=== PATIENT | female | born 1950 | race Caucasian/White ===

== ENCOUNTER → 2021-04-12 15:56 | Outpatient (CLI) | payer MEDICARE, SELFPAY ==
--- NOTE | ~2021-04-12 | XR_ITS ---
XR cervical spine 4-5V 04/12/2021 16:38 Indication: Neck pain Procedure: 7 views cervical spine Comparison: No prior studies for comparison. Findings: There is degenerative anterolisthesis at C4-5. There is degenerative disc disease at C5-6 a nd C6-7 with marginal osteophytes. No prevertebral soft tissue swelling. There is advanced multilevel facet hypertrophy. Lung bases are unremarkable. No fracture or traumatic malalignment. Impression: 1: Moderate cervical spondylosis. Reviewed, dictated and finalized at location A. 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
== END ==
PROVIDERS: PCP Physician Assistant; Visit Provider Physician Assistant
DX: M47.892 Other spondylosis, cervical region (principal)
CPT/HCPCS: 72050

== ENCOUNTER → 2021-06-12 11:33 | Outpatient (CLI) | payer MEDICARE, SELFPAY ==
--- NOTE | ~2021-06-12 | XR_ITS ---
XR lumbar spine 2-3V DATE: 06/12/2021 11:51 INDICATION: Back pain following a fall TECHNIQUE: AP, lateral, coned lateral lumbosacral views COMPARISON: 08/16/2003 lumbar spine FINDINGS: There is minimal dextroscoliosis of the lower thoracic and lumbar spine. There is diffuse osteopenia. There is mild anterior wedge compression fracture deformity of L1, new since 08/16/2003, possibly rece nt. There is degenerative disc disease throughout the lumbar spine, mild at L1-2, moderate at L2-3, moder ately severe at L3-4 and severe at L4-5 and L5-S1. There is degenerative change at the apophyseal joints with associated grade 1 anterolisthesis at L3-4 . The sacroiliac joints are intact. IMPRESSION: Mild anterior wedge compression fracture deformity of L1, possibly recent Diffuse osteopenia Mild scoliosis Multilevel degenerative disc disease, most prominent at L4-5 and L5-S1 Degenerative change at the apophyseal joints with associated grade 1 anterolisthesis at L3-4 Reviewed, dictated and finalized at location B. ET DEVELOPER IMPRESSION: Mild anterior wedge compression fracture deformity of L1, possibly recent Diffuse osteopenia Mild scoliosis Multilevel degenerative disc disease, most prominent at L4-5 and L5-S1 Degenerative change at the apophyseal joints with associated grade 1 anterolist hesis at L3-4
== END ==
PROVIDERS: PCP Physician Assistant; Visit Provider Physician Assistant
DX: M85.88 Other specified disorders of bone density and structure, other site (principal); M51.36 Other intervertebral disc degeneration, lumbar region; M41.9 Scoliosis, unspecified; S32.010A Wedge compression fracture of first lumbar vertebra, initial encounter for closed fracture; X58.XXXA Exposure to other specified factors, initial encounter
CPT/HCPCS: 72100

== ENCOUNTER 2021-11-06 14:27 | Outpatient (CLI) | payer MEDICARE, SELFPAY ==
--- NOTE | ~2021-11-06 | CT_ITS ---
EXAMINATION: CT abdomen pelvis wo/w con DATE: 11/06/2021 15:20 INDICATION: Urinary frequency. Hematuria. TECHNIQUE: Computed tomography (CT) of the abdomen and pelvis was performed without and with 130 cc O mnipaque 300 intravenous contrast. The dose-length product was 834.92 mGy-cm. Automated exposure cont rol and iterative reconstruction technique were employed. COMPARISON: None. FINDINGS: Dependent atelectasis. Otherwise, lung bases are unremarkable. The liver, spleen pancreas, adrenal glands are unremarkable. There are small subcentimeter hypodensities of the left kidney, most likely benign cysts. Ureters are normal in course and caliber. Bladder is unremarkable. Colonic dive rticulosis without evidence for diverticulitis. There is atherosclerosis of the aorta without aneurys m. Bladder is unremarkable. Nonobstructive bowel gas pattern. No lymphadenopathy. There is a chronic superior endplate compression fracture of L1 there is severe IMPRESSION: 1. No findings to account for patient's symptoms. Reviewed, dictated and finalized at location A.
--- NOTE | ~2021-11-06 | XR_ITS ---
XR abdomen/kub 1V 11/06/2021 14:46 INDICATION: Microscopic hematuria TECHNIQUE: KUB COMPARISON: None FINDINGS: Bowel gas pattern is normal. There is no evidence of free air, mass, organomegaly, ascites or obstruction. No abnormal calculi are seen. The bones appear intact. Moderate lumbar spondylosis . IMPRESSION: 1: No acute abdominal abnormality identified. Reviewed, dictated and finalized at location A.
[2021-11-06 15:00] LABS: Estimated Glomerular Filt Rate > 60
== END 2021-11-06 14:28 | disposition home or self-care (01) ==
PROVIDERS: PCP Physician Assistant; Visit Provider Nurse Practitioner Family
DX: R31.29 Other microscopic hematuria (principal)
CPT/HCPCS: 74018; 74178; Q9967

== ENCOUNTER → 2022-09-16 14:13 | Outpatient (CLI) | payer OTHER, SELFPAY ==
--- NOTE | ~2022-09-16 | XR_ITS ---
XR knee RT min 4V 09/16/2022 14:55 Indication: Right knee pain Procedure: 4 views right knee Comparison: No prior studies for comparison. Findings: There is moderate tricompartment osteoarthritis of the right knee. No fracture or traumatic malalignment. Small loose bodies presents. To the patellofemoral joint. Normal mineralization. No si gnificant joint effusion. No foreign bodies. Impression: 1: Moderate tricompartment osteoarthritis of the right knee. Reviewed, dictated and finalized at location B. Impression: 1: Moderate tricompartment osteoarthritis of the right knee.
== END ==
PROVIDERS: PCP Internal Medicine; Visit Provider Internal Medicine
DX: M17.11 Unilateral primary osteoarthritis, right knee (principal)
CPT/HCPCS: 73564

== ENCOUNTER 2022-10-04 12:27 | Outpatient (CLI) | payer MEDICARE, SELFPAY ==
--- NOTE | ~2022-10-04 | XR_ITS ---
XR lumbar spine min 4V DATE: 10/04/2022 12:57 INDICATION: Low back pain, right side, radiating to hip. Fall. TECHNIQUE: AP, lateral, coned lateral lumbosacral and bilateral oblique views COMPARISON: June 12, 2021 lumbar spine FINDINGS: There is osteopenia. There is chronic mild anterior wedge compression fracture deformity of L1, present on June 12. There is mild degenerative disc disease at L1-2 and L2-3, moderate to moderately severe degenerative disc disease at L3-4 and severe degenerative disc disease at L4-5 and L5-S1, with prominent posterior spurring at L4-5. There is degenerative change at the lumbar apophyseal joints with associated grade 1 anterolisthesis at L3-4. The sacroiliac joints are intact. Extensive calcification of the abdominal aorta, without evidence of aneurysm. IMPRESSION: Multilevel degenerative disc disease, most pronounced at L4-5 and L5-S1 Grade 1 anterolisthesis at L3-4 due to degenerative changes apophyseal joints Chronic L1 compression fracture Reviewed, dictated and finalized at location [] IMPRESSION: Multilevel degenerative disc disease, most pronounced at L4-5 and L 5-S1 Grade 1 anterolisthesis at L3-4 due to degenerative changes apophyseal joints Chronic L1 compression fracture
== END 2022-10-04 12:28 | disposition home or self-care (01) ==
PROVIDERS: PCP Internal Medicine; Visit Provider Internal Medicine
DX: M51.36 Other intervertebral disc degeneration, lumbar region (principal); M51.37 Other intervertebral disc degeneration, lumbosacral region
CPT/HCPCS: 72110

== ENCOUNTER 2023-01-02 10:54 | Outpatient (CLI) | payer MEDICARE, SELFPAY ==
--- NOTE | ~2023-01-02 | MR_ITS ---
MR breast BI wo/w con 01/10/2023 08:44 CDT INDICATION: Extremely dense breasts TECHNIQUE: MRI of the breasts perform using standard protocol pre-and post IV contrast with the follo wing sequences: Axial T2 STIR, axial T1, axial vibrant T1 with fat suppression precontrast and multip hasic postcontrast. 15 cc of MultiHance administered intravenously. COMPARISON: No prior studies for comparison. FINDINGS: There are no abnormalities on the precontrast sequences. There is mild background parenchym al enhancement. No enhancing lesions following contrast administration. The lower outer quadrant of the right breast, 4.5 cm from the nipple, anteriorly, there is a 7 x 5 x 5 mm heterogeneously enhanci ng mass with rapid washout. No evidence of signal abnormalities in the axillary or internal mammary n ode distributions. LEFT BREAST: No signal abnormalities on precontrast sequences. There is mild background parenchymal enhancement. No enhancing lesions following contrast administration. In the lower inner quadrant of the left breast, 6.5 cm from the nipple posteriorly there is a poorly marginated mass measuring 2.1 x 1.8 x 1.4 cm with rapid washout enhancement No evidence of signal abnormalities in the axillary or internal mammary node distributions.] IMPRESSION: 1: Bilateral breast masses described above. Correlation with diagnostic bilateral mammogram and ultra sound recommended. BI-RADS CATEGORY 0 - INCOMPLETE STUDY, NEED ADDITIONAL IMAGING EVALUATION. Reviewed, dictated and finalized at location B. IMPRESSION: 1: Bilateral breast masses described above. Correlation with diagnostic bilater al mammogram and ultrasound recommended. BI-RADS CATEGORY 0 - INCOMPLETE STUDY, NEED ADDITIONAL IMAGING EVALUATION.
== END 2023-01-02 10:55 | disposition home or self-care (01) ==
PROVIDERS: PCP Internal Medicine; Visit Provider Obstetrics & Gynecology Gynecology
DX: N63.13 Unspecified lump in the right breast, lower outer quadrant (principal); N63.24 Unspecified lump in the left breast, lower inner quadrant
CPT/HCPCS: 77049; A9577; C8908

== ENCOUNTER 2023-02-03 12:45 | Outpatient (CLI) | payer MEDICARE, SELFPAY ==
--- NOTE | ~2023-02-03 | MMUS_ITS ---
EXAMINATION: MM diagnostic yin BI w liss, US breast BI complete HISTORY: Right lower outer quadrant 7 x 5 x 5 mm mass reported 4.5 cm from nipple and left lower inne r quadrant 2.1 x 1.8 x 1.4 cm irregular mass reported 6.5 cm from the nipple on 01/02/2023 MR breast ex amination TECHNIQUE: Bilateral ML, MLO and CC and left spot MLO 3-D tomosynthesis images were performed and syn thetic 2-D images were generated. CAD analysis was submitted and interpreted. High resolution bilater al complete breast ultrasound examination including all 4 quadrants and subareolar areas was performe d. COMPARISON: 01/02/2023 MR breast examination 03/25/2022 bilateral screening mammogram performed at [address] [place] [address] BREAST PARENCHYMAL COMPOSITION: The breasts are extremely dense, which lowers the sensitivity of mamm ography. FINDINGS: MAMMOGRAPHIC FINDINGS: There are bilateral scattered benign calcifications. No reproducible suspicious [facility]. ULTRASOUND: Left breast 7:00 3 cm from nipple: 3.2 x 3.6 mm sonolucency is no through transmission, no posterior shadowing, no internal vascularity, likely a benign cyst. No suspicious mass or shadowing of either breast is detected. IMPRESSION: 1. No mammographic or sonographic evidence of malignancy 2. Routine annual mammographic screening is recommended BI-RADS Category 2: Benign finding(s). Reviewed, dictated and finalized at location A. IMPRESSION: 1. No mammographic or sonographic evidence of malignancy 2. Routine annual mammographic screening is recommended BI-RADS Category 2: Benign finding(s).
== END 2023-02-03 12:46 | disposition home or self-care (01) ==
PROVIDERS: PCP Internal Medicine; Visit Provider Obstetrics & Gynecology Gynecology
DX: R92.8 Other abnormal and inconclusive findings on diagnostic imaging of breast (principal)
CPT/HCPCS: 76641; 77062; 77066; G0279

== ENCOUNTER 2024-02-06 09:39 | Outpatient (CLI) | payer MEDICARE, SELFPAY ==
--- NOTE | ~2024-02-06 | DEXA_ITS ---
Bone Density Report Name: ZAHRA ADAMS Age: 73 Sex: Female Ethnicity: White Date of : 1950 Indication: postmenopausal; screening for osteoporosis; height loss; inflammatory bowel disease; Referring Provider: COLEMAN ONTIVEROS Study: Bone densitometry was performed. Exam Date: February 06, 2024 Accession number: [id number] Bone Density: Region BMD T-score Z-score Classification AP Spine(L1-L4) 1.285 2.2 4.6 Normal Femoral Neck (Left) 0.974 1.1 3.2 Normal Total Hip (Left) 1.111 1.4 3.2 Normal Femoral Neck (Right) 0.958 1.0 3.1 Normal Total Hip (Right) 1.045 0.8 2.6 Normal Total Hip Mean 1.078 1.1 2.9 Normal World Health Organization criteria for BMD impression classify patients as: Normal (T-score at or above -1.0), Osteopenia (T-score between -1.0 and -2.5), or Osteoporosis (T-score at or below -2.5). 10-year Fracture Risk: FRAX not reported because: All T-scores for Spine Total, Hip Total, Femoral Neck at or above -1.0 Clinical Information Provided by Patient: Smokes Has used the following medications: Vitamin D Has the following medical conditions: Inflammatory bowel diseases Patient maximum height was 66 Menopause Age: 43 No regular weight bearing exercise Drinks caffeinated beverages Onset of menses at age 11 Number of children 2 Impression: The patient has normal bone mass. The patient has risk factors, including: smoking. Discussion: LOW RISK OF FRACTURE; BONE DENSITY IS WELL ABOVE THE MINIMUM DESIRABLE LEVEL AND ABOVE AVERAGE FOR AGE AND SEX AT ALL SKELETAL SITES TESTED. This person's bone density is above expected limits for age and sex. This is rarely clinically significant, but should be pursued if there are significant musculoskeletal complaints. The patient should follow a healthful lifestyle (good nutrition with adequate calcium and vitamin D, and appropriate weight-bearing exercise). Follow-Up: Consider repeating this study in 5 years or sooner if there is some new clinical indication. Reported by: OLEG on 02/06/2024 10:18:00 AM. Reviewed, dictated and finalized at location ALouie SUBRAMANIAN
== END 2024-02-06 09:40 | disposition home or self-care (01) ==
LOC: ANHIMG 09:41
PROVIDERS: PCP Internal Medicine; Visit Provider Advanced Practice Midwife
DX: Z78.0 Asymptomatic menopausal state (principal)
CPT/HCPCS: 77080

== ENCOUNTER 2024-02-10 15:01 | Outpatient (CLI) | payer MEDICARE, SELFPAY ==
--- NOTE | ~2024-02-10 | MM_ITS ---
EXAMINATION: MM screening yin BI w liss HISTORY: Screening TECHNIQUE: Craniocaudal and mediolateral oblique 3-D tomosynthesis images were obtained and synthetic 2-D images were generated. CAD analysis was submitted and interpreted. COMPARISON: Comparison to multiple prior studies sequentially, with oldest reviewed study dated 02/27. BREAST PARENCHYMAL COMPOSITION: Dense: The breasts are extremely dense, which lowers the sensitivity of mammography. FINDINGS: There is a developing mass in the lower outer quadrant of the right breast which is partial ly obscured by fibroglandular tissue. The left breast is stable without evidence for malignancy. IMPRESSION: 1. Developing right breast asymmetry. 2. Additional mammographic views and possible breast ultrasound are recommended. BI-RADS Category 0: Incomplete: Needs additional imaging evaluation. Reviewed, dictated and finalized at location B. IMPRESSION: 1. Developing right breast asymmetry. 2. Additional mammographic views and possible breast ultrasound are recommended . BI-RADS Category 0: Incomplete: Needs additional imaging evaluation.
== END 2024-02-10 15:02 | disposition home or self-care (01) ==
PROVIDERS: PCP Internal Medicine; Visit Provider Advanced Practice Midwife
DX: Z12.31 Encounter for screening mammogram for malignant neoplasm of breast (principal); R92.8 Other abnormal and inconclusive findings on diagnostic imaging of breast
CPT/HCPCS: 77063; 77067

== ENCOUNTER 2024-02-26 12:06 | Outpatient (CLI) | payer MEDICARE, SELFPAY ==
--- NOTE | ~2024-02-26 | MM_ITS ---
EXAMINATION: MM diagnostic yin RT w liss HISTORY: Possible right breast mass TECHNIQUE: Additional 3-D tomosynthesis images of the right breast were performed and synthetic 2-D i mages were generated. CAD analysis was submitted and interpreted. COMPARISON: 02/10/2024 BREAST PARENCHYMAL COMPOSITION:Dense: The breasts are extremely dense, which lowers the sensitivity o f mammography. FINDINGS: The area of increased density in the right breast effaces on spot compression. No persisten t mass lesion or distortion seen. No suspicious microcalcification. IMPRESSION: No mammographic evidence for malignancy. BI-RADS Category 1: Negative Reviewed, dictated and finalized at location M.
== END 2024-02-26 12:07 | disposition home or self-care (01) ==
LOC: ANHIMG 12:07
PROVIDERS: PCP Internal Medicine; Visit Provider Obstetrics & Gynecology Gynecology
DX: R92.8 Other abnormal and inconclusive findings on diagnostic imaging of breast (principal)
CPT/HCPCS: 77061; 77065; G0279

== ENCOUNTER 2024-07-12 12:02 | Outpatient (CLI) | payer MEDICARE, SELFPAY ==
--- NOTE | ~2024-07-12 | XR_ITS ---
Cervical Spine: AP, lateral, open-mouth views Clinical History: Pain Findings: The normal lordotic curve is maintained. No fracture. Probable minimal grade 1 anterolisthe sis of C4-C5. There is advanced degenerative disc narrowing at C5-C6 and C6-C7. There is moderate to advanced facet arthropathy throughout the cervical spine. Pre-vertebral soft tissues are unremarkable . Impression: Moderate to advanced degenerative spondylosis, as above. Reviewed, dictated and finalized at location M. Impression: Moderate to advanced degenerative spondylosis, as above.
--- NOTE | ~2024-07-12 | MR_ITS ---
MR cervical spine wo con Ordering provider: Ok SuarezMD History: 73 years Female with . Radiculopathy, cervical region . Comparison: None. Technique: MRI cervical spine without contrast. FINDINGS: CERVICAL SPINAL CORD/CRANIAL CERVICAL JUNCTION: Normal in signal and caliber. CERVICAL VERTEBRAL BODIES: Normal height and alignment. Normal marrow signal. DISK SPACES: Narrowing of the disc C6-C7. Multilevel facet joint disease C2-C3: No stenosis. Mild diffuse disc bulge. C3-C4: No stenosis. C4-C5: No stenosis. Diffuse disc bulge. Slight narrowing of the left foramen with nerve root compress ion. C5-C6: No stenosis. Diffuse disc bulge with bilateral narrowing of the foramina and nerve root compre ssion. C6-C7: No stenosis. Diffuse disc bulge with bilateral narrowing of the foramina and with nerve root c ompression. C7-T1: No stenosis. VISUALIZED PARASPINOUS SOFT TISSUES: Normal. IMPRESSION: 1. No acute osseous abnormalities. 2. Multilevel degenerative disc bulges with intervertebral foraminal narrowing. Reviewed, dictated and finalized at location A. IMPRESSION: 1. No acute osseous abnormalities. 2. Multilevel degenerative disc bulges with intervertebral foraminal narrowing .
== END 2024-07-12 12:03 | disposition home or self-care (01) ==
PROVIDERS: PCP Internal Medicine; Visit Provider Anesthesiology
DX: M47.22 Other spondylosis with radiculopathy, cervical region (principal)
CPT/HCPCS: 72040; 72141

== ENCOUNTER 2025-03-08 14:28 | Outpatient (CLI) | payer MEDICARE, SELFPAY ==
--- OUTSIDE RECORDS SUMMARY | 2008-03-30 18:00 | XMS_ITS | Continuity of Care Document ---
Author Organization [facility] [place] [address] [place] [address] Phone Care Team Providers Care [place] Stocker Name Role Phone [facility] Unavailable Unavail able Ford Corbett Unavailable Unavailable Procedures Procedure Date Progressive Lens, Plastic Frames Deluxe Tax - Medical Eye Exam & Treatment Refraction Eye Exam Established Pt Visual Field Examination(s) Office/outpatient Visit, Est Advance Directives Directive Yes / No Effective Date File Name No Information Encounters Encounter Description Practice Location Reason(s) For Visit Diagnoses Date Provider Providers Copied on Encounter [facility], [address] [place] [address] [address], [place], [place], [id number], [place] tel:[phone] [facility] No Information 4-200 8 [facility]. [address] [place] [address], [address], [place], [id number], [place]. tel:[phone] Referring Provider: Robi dorado, [address] [place] [address] [address], [place], [address]. tel:[phone] sulting Provider: Ford Corbett, [address] [place] [address], [place], [address]. tel:[phone] [facility], [address], [place], [place], [id number], [place] tel:[phone] [facility] No Information 5 8 Nisha Rosenbaum. [address] [facility] [address], [place], [address], [place]. tel:[phone] [facility], [address], [place], [place], [id number], [place] tel:[phone] [facility] No Information 200 8 Boris Tripp. [address], [place], [address], [place]. tel:[phone] [facility], [address], [place], [place], [id number], [place] tel:[phone] [facility] No Information 200 7 Vincent Randolph. [address] [facility] [place] [address], [place]. tel:[phone] Referring Provider: Agustín Sheppard, [address] [facility] [place], [address] . tel:[phone] Office/outpat ient Visit, [facility], [address], [place], [place], [id number], [place] tel:[phone] [facility] No Information Jun-0 6200 7 Vincent Randolph. [address], [facility] [place], [id number], [place]. tel:[phone] Referring Provider: Agustín Sheppard [address] [place], [address] . tel:[phone] Family History Family Member Type Diagnosis Age At Onset No Information Payers Payer name Insurance type Covered green party ID Joce ariasjhoana(s) [employer] Plan CI [id number] Social History Type Description Quantity Date Captured Comments Sex Female Smoking Status No Information Chief Complaint And Reason For Visit No Information Reason For Referral Reason For Referral No Information History Of Present Illness Encounter Date Complaint History Of Prese nt Illness No Information Functional Status Date Functional Assessmen t No Information Instructions Date Instruction Additional Infor mation No Information Assessments Type Assessment Date No Information Patient Care Teams Name Effective Dates (start - stop) Status Members No Information
--- OUTSIDE RECORDS SUMMARY | 2024-08-05 04:45 | XMS_ITS ---
Author Organization [facility] Address [address] [place] [address] [place] [address] Care Team Providers Care Log Inspector Name Role Phone ROHIT AWAN MD Primary Care Provider Brittny jacobson Ok Suarez Unavailable [phone] ALLERGIES No Known Allergies REASON FOR VISIT FOLLOW UP, Right > Left Neck Pain MEDICATIONS Medication SIG (Take, Route, Frequency, Duration) Notes Start Date End Date Status Narcan 4 MG/0.1ML as directed Nasally 1 actuation in one nostril 1 time nasally every 2-3 minutes as needed until the patient is responsive or EMS arrives for 1 days 10/09/2023 Active Metoprolol Succinate ER 50 MG TAKE 1 TABLET BY MOUTH EVERY DAY Oral for 90 Active Loratadine 10 MG TAKE 1 TABLET BY MOUTH EVERY DAY NEEDED FOR ALLERGY Oral for 90 Active Losartan Potassium 100 MG TAKE 1 TABLET BY MOUTH EVERY DAY Oral for 90 Active traMADol HCl 50 MG take 1 tablet by mouth every 12 hours as needed Oral every 12 hours for 30 days MAY FILL 08/14/24 08/05/2024 Active Clopidogrel Bisulfate 75 MG TAKE 1 TABLET BY MOUTH EVERY DAY Oral for 90 Active Atorvastatin Calcium 20 MG TAKE 1 TABLET BY MOUTH EVERY DAY Oral for 90 Active Pramipexole Dihydrochloride 0.25 MG 1 tablet Orally Three a day Active EnteraGam 5 GM as directed Orally Active PreserVision AREDS - as directed Orally Active CoQ10 30 MG as directed Orally Active K2-D3 5000 5000-90 UNIT-MCG as directed Orally Active SOCIAL HISTORY Tobacco Use: Social History Observation Description Date Details (start date - stop date) Current Smoker NA - NA Sex Assigned At : Social History Observation Description Sex Assigned At Unknown Tobacco Use/Smoking Question Answer Notes Are you a current smoker How often do you smoke cigarettes? every day Are you interested in quitting? Not ready to gretchen t Section Notes: The patient is retired. She is . The patient smokes one pack of cigarettes daily. She denies alcohol or illicit drug abuse. VITAL SIGNS Blood pressure systolic 145 mm Hg 08/06/19 25 Blood pressure diastolic 82 mm Hg 025 Heart Rate 69 /min 08/05/2024 Respiratory Rate 16 /min 08/05/2024 Height 5 ft 5 in in 08/05/2024 Weight 164 lbs 08/05/2024 BMI 27.29 kg/m2 08/05/2024 Encounters Encounter Location Date Provider Diagnosis [facility] [address] [facility] [place] [address] 08/05/2024 Ok Suarez Spondylosis without myelopathy or radiculopathy, cervical region M47.812 ; Radiculopathy, cervical region M54.12 ; Radiculopathy, lumbar region M54.16 ; Spondylosis without myelopathy or radiculopathy, 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 ; Postlaminectomy syndrome, not elsewhere classified M96.1 ; DDD (degenerative disc disease), lumbar M51.36 ; 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.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 and group home (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 of 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 Z79.01 ASSESSMENTS Encounter Date Diagnosis Assessment Notes Treatment Notes Treatment Clinical Notes Section Notes 08/05/2024 Spondylosis without myelopathy or radiculopathy, cervical region (ICD-10 - M47.812) 08/05/2024 Radiculopathy, cervical region (ICD-10 - M54.12) The side effects of opioid analgesics including sedation, constipation potentially resulting in bowel obstruction, respiratory depression, tolerance, addiction, hyperalgesia, withdrawal after abrupt discontinuation, immunosuppression and endocrine abnormalities such as hypocortisolism and hypogonadism resulting in sexual dysfunction which may become permanent were discussed and the patient expressed an understanding of the above. The patient was advised to avoid driving, climbing ladders and operating dangerous machinery after taking this medication. The patient was advised to avoid consuming alcohol, illicit drugs and sedative/hypnotic drugs in conjunction with this medication due to the risk of profound respiratory depression and . The patient was directed to utilize the lowest effective dose possible. The importance of safe storage and keeping opioid medications locked up at all times in order to prevent theft and unintended consumption by friends, relatives or anyone else was discussed with the patient at length. The patient agrees to fully comply with the above. 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 Suarez. I have discussed and reviewed all of the pertinent history, physical examination findings and diagnostic imaging results with him. As a result of our discussion, Dr. Suarez has determined the above assessment and directed the treatment plan. This note was dictated using voice recognition software and therefore inadvertent errors may have occurred. This note was dictated by WALLACE Leblanc. Total Time Spent with Patient and Medical Decision Makin minutes PLAN OF TREATMENT Medication Medication Name Sig Start Date Stop Date Notes traMADol HCl 50 MG take 1 tablet by cathy every 12 hours as needed Oral every 12 hours for 30 days 08/05/2024 MAY FILL 08/14 Treatment Notes Assessment Notes Radiculopathy, cervical region The side effects of opioid analgesics including sedation, constipation potentially resulting in bowel obstruction, respiratory depression, tolerance, addiction, hyperalgesia, withdrawal after abrupt discontinuation, immunosuppression and endocrine abnormalities such as hypocortisolism and hypogonadism resulting in sexual dysfunction which may become permanent were discussed and the patient expressed an understanding of the above. The patient was advised to avoid driving, climbing ladders and operating dangerous machinery after taking this medication. The patient was advised to avoid consuming alcohol, illicit drugs and sedative/hypnotic drugs in conjunction with this medication due to the risk of profound respiratory depression and . The patient was directed to utilize the lowest effective dose possible. The importance of safe storage and keeping opioid medications locked up at all times in order to prevent theft and unintended consumption by friends, relatives or anyone else was discussed with the patient at length. The patient agrees to fully comply with the above. The [place] and [place] PDMP were reviewed and were appropriate Other The above-named patient was evaluated in conjunction with Dr. Suarez. I have discussed and reviewed all of the pertinent history, physical examination findings and diagnostic imaging results with him. As a result of our discussion, Dr. Suarez has determined the above assessment and directed the treatment plan. This note was dictated using voice recognition software and therefore inadvertent errors may have occurred. This note was dictated by WALLACE Leblanc. Total Time Spent with Patient and Medical Decision Makin minutes Next Appt Details Follow Up: 4 Weeks OPV, Reas on: Provider Name:Ok Valarie asher, 03/28/2025 11:00:00 AM, [address] [place] [address], [phone], Progress Notes * Examination Category Sub-Category Detail Notes Category Not es Examination/ Pre-Anesthesia Assessment General: The patient is alert and rigoberto ented X 3 in moderate distress secondary to pain UDS 05/12/24 compliant HEENT: Normocephalic, atrau matic. PERRL. The oropharynx is clear Neck: There is limited ran ge of motion of the cervical spine to 60 degrees with extension and lateral rotation bilaterally. There is tenderness to palpation over the bilateral C3-4 through C7-T1 facet joints. Extension and lateral rotation of the cervical spine reproduces the patients typical axial neck pain. The axial loading test is positive. There is diffuse tenderness to palpation over the bilateral cervical paraspinal muscles and significant muscle spasm throughout Heart: Regular rate and rhy thm Chest: Clear to auscultatio n bilaterally Abdomen: Soft and benign with normal bowel sounds throughout Musculoskeletal and Extremities: There i s tenderness to palpation over the bilateral L2-3 through L5-S1 facet joints. Extension and lateral rotation of the lumbar spine reproduces the patient's typical axial low back pain. Galo's, [place]'s and Gaenslen's are positive bilaterally. There is tenderness to palpation over the bilateral sacroiliac joints and greater trochanters. There is tenderness to palpation over the bilateral lumbar paraspinal muscles and palpable myofascial trigger points throughout. There is weakness and atrophy of the bilateral lumbar paraspinal muscles Neurological: There is positive st raight leg raising bilaterally. There are no focal strength deficits in the bilateral upper and lower extremities Skin: Clean, dry and intac t Psychiatric: Mood and affect are normal History and Physical Notes * HPI (History of Present Illness) Category Sub-Category Detail Notes Category Not es Pain Management Radiographic Imaging An MRI lumbar spine done on 07/18/21 demonstrates a grade 1 anterolisthesis of L3 on L4. There is DDD and bilateral facet arthropathy at all levels of the lumbar spine. There is marrow edema in the superior endplate of L1 consistent with an acute compression fracture. At L1-2 there is a central disc bulge with a right foraminal protrusion. In combination with facet and ligament hypertrophy there is mild right foraminal stenosis. At L2-3 there is a central disc bulge with a foraminal disc protrusion to the right. In combination with facet and ligament hypertrophy there is severe central canal and mild bilateral foraminal stenosis. At L3-4 there bilateral laminectomies. There is a central disc bulge and in combination with severe facet and ligament hypertrophy this causes severe central canal and moderate bilateral foraminal stenosis. At L4-5 there is a central disc bulge and in combination with facet and ligament hypertrophy there is bilateral lateral recess stenosis. At L5-S1 there is a central disc bulge and in combination with facet hypertrophy there is bilateral foraminal stenosis. An x-ray cervical spine done on 04/12/21 demonstrates an anterolisthesis of C4 on C5. There is DDD at C5-6 and C6-7. There is bilateral facet and uncovertebral hypertrophy from C4-5 through C6-7 X-rays cervical spine performed 07/12/24. Normal lordotic curve is maintained. No fracture. Probable minimal grade 1 anterior listhesis of C4-C5. There is advanced degenerative disc narrowing at C5-6 and C6-7. There is moderate to advanced arthropathy throughout the cervical spine. Prevertebral soft tissues are unremarkable. MRI cervical spine without contrast performed 07/12/24. This space narrowing of the disc C6 through 7. Multiple level facet joint disease. C2-3, no stenosis. Mild diffuse disc bulge. C3-4, no stenosis. C4-5, no stenosis. Diffuse disc bulge. Slight narrowing of the left foramen with nerve root compression. C5-6. No stenosis. Diffuse disc bulge with bilateral narrowing of the foramina and nerve root compression. C6-7. No stenosis. Diffuse disc bulge with bilateral narrowing of the foramina and with nerve root compression. C7-T1, no stenosis. Overall, impression no acute osseous abnormalities. Multilevel degenerative disc bulge with intervertebral foraminal narrowing. Assessment and Follow-up: Follow-up Plan documen lee:: Yes [facility] Quality 2020: MIPS Documented:: Compliant
--- OUTSIDE RECORDS SUMMARY | 2024-09-04 04:38 | XMS_ITS ---
Author Organization [facility] Address [address] [facility] [place] [address] Care Team Providers Care Corn Miller Name Role Phone ROHIT AWAN MD Primary Care Provider Unavailab Ok Peña Unavailable [phone] REASON FOR VISIT Update [employer] Encounters Encounter Location Date Provider Diagnosis [facility] [address] [facility] [place] [address] 09/04/2024 ROHIT AWAN PLAN OF TREATMENT Next Appt Details Provider Name:Ok asher, 03/28/2025 11:00:00 AM, [address] [facility] [place], [address],
--- OUTSIDE RECORDS SUMMARY | 2024-09-06 04:30 | XMS_ITS ---
Author Organization [facility] Address [address] [facility] [place] [address] Care Team Providers Care Chemical Milling Processor Name Role Phone ROHIT AWAN MD Primary Care Provider Unavailab Ok Peña Unavailable [phone] REASON FOR VISIT FOLLOW UP Encounters Encounter Location Date Provider Diagnosis [facility] [address] [facility] [place] [address] 09/06/2024 Ok Suarez PLAN OF TREATMENT Next Appt Details Provider Name:Ok asher, 03/28/2025 11:00:00 AM, [address] [facility] [place], [address],
--- OUTSIDE RECORDS SUMMARY | 2024-09-09 04:30 | XMS_ITS ---
Author Organization [facility] Address [address] [place] [address] [place] [address] Care Team Providers Care Wellness Program Administrator Name Role Phone ROHIT AWAN MD Primary Care Provider Brittny jacobson Ok Suarez Unavailable [phone] ALLERGIES No Known Allergies REASON FOR VISIT Follow Up, Right = Left Neck Pain MEDICATIONS Medication SIG (Take, Route, Frequency, Duration) Notes Start Date End Date Status traMADol HCl 50 MG take 1 tablet by mouth every 12 hours as needed Oral every 12 hours for 30 days MAY FILL 09/16/24 09/09/2024 Active Metoprolol Succinate ER 50 MG TAKE 1 TABLET BY MOUTH EVERY DAY Oral for 90 Active Narcan 4 MG/0.1ML as directed Nasally 1 actuation in one nostril 1 time nasally every 2-3 minutes as needed until the patient is responsive or EMS arrives for 1 days 10/09/2023 Active K2-D3 5000 5000-90 UNIT-MCG as directed Orally Active CoQ10 30 MG as directed Orally Active Pramipexole Dihydrochloride 0.25 MG 1 tablet Orally Three a day Active Atorvastatin Calcium 20 MG TAKE 1 TABLET BY MOUTH EVERY DAY Oral for 90 Active Clopidogrel Bisulfate 75 MG TAKE 1 TABLET BY MOUTH EVERY DAY Oral for 90 Active Losartan Potassium 100 MG TAKE 1 TABLET BY MOUTH EVERY DAY Oral for 90 Active Loratadine 10 MG TAKE 1 TABLET BY MOUTH EVERY DAY NEEDED FOR ALLERGY Oral for 90 Active PreserVision AREDS - as directed Orally Active EnteraGam 5 GM as directed Orally Active SOCIAL HISTORY Tobacco [...] drug abuse. 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 09/09/2024 skilled nursing (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 of 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 (ICD-10 - Z79.01) 09/09/2024 Other The above-named patient was evaluated in [...] Oral every 12 hours for 30 days 09/09/2024 MAY FILL 09/16 Treatment Notes Assessment Notes Radiculopathy, cervical region [...] to fully comply with the above. The [place] and [place] PDMP were reviewed and were appropriate skilled nursing (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 of o piate analgesic The patient submitted a urine sample for drug screening to ensure compliance. Other The above-named patient was evaluated in [...] 4 Weeks OPV, Reas on: Provider Name:Ok Sheppard Ananda asher, 03/28/2025 11:00:00 AM, [address] [place] [address], [phone], Progress Notes * Examination Category Sub-Category [...] patient's typical axial low back pain. Galo's, Britt's and Gaenslen's are positive bilaterally. There is [...]
--- OUTSIDE RECORDS SUMMARY | 2024-10-07 04:15 | XMS_ITS ---
Author Organization [facility] Address [address] [place] [address] [place] [address] Care Team Providers Care Service Or Work Dispatcher Chief Name Role Phone ROHIT AWAN MD Primary Care Provider Brittny Maddoxalfred Ok Unavailable [phone] ALLERGIES No Known Allergies REASON FOR VISIT Follow Up, Right = Left Neck Pain, Hand Pain MEDICATIONS Medication SIG (Take, Route, Frequency, Duration) Notes Start Date End Date Status Metoprolol Succinate ER 50 MG TAKE 1 TABLET BY MOUTH EVERY DAY Oral for 90 Active Narcan 4 MG/0.1ML as directed Nasally 1 actuation in one nostril 1 time nasally every 2-3 minutes as needed until the patient is responsive or EMS arrives for 1 days 10/09/2023 Active Dicyclomine HCl 10 MG TAKE 1 CAPSULE BY MOUTH EVERY 6 HOURS NEEDED FOR CRAMPING/DIARRHEA Oral for 22 Active amLODIPine Besylate 5 MG TAKE 1 TABLET B Y MOUTH EVERY DAY IN THE EVENING Oral for 90 Active Loratadine 10 MG TAKE 1 TABLET BY MOUTH EVERY DAY NEEDED FOR ALLERGY Oral for 90 Active traMADol HCl 50 MG take 1 tablet by mouth every 12 hours as needed Oral every 12 hours for 30 days MAY FILL 10/18/24 10/07/2024 Active Pramipexole Dihydrochloride 0.25 MG 1 tablet Orally Three a day Active Clopidogrel Bisulfate 75 MG TAKE 1 TABLET BY MOUTH EVERY DAY Oral for 90 Active Atorvastatin Calcium 20 MG TAKE 1 TABLET BY MOUTH EVERY DAY Oral for 90 Active Losartan Potassium 100 MG TAKE 1 TABLET BY MOUTH EVERY DAY Oral for 90 Active K2-D3 5000 5000-90 UNIT-MCG as directed Orally Active PreserVision AREDS - as directed Orally Active CoQ10 30 MG as directed Orally Active EnteraGam 5 GM [...] drug abuse. 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 The [place] and [place] PDMP were reviewed and were appropriate 10/07/2024 Radiculopathy, lumbar region (ICD-10 - M54.16) 10/07/2024 Spondylosis without myelopathy or radiculopathy, 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) 10/07/2024 Postlaminectomy syndrome, not elsewhere classified (ICD-10 - M96.1) 10/07/2024 DDD (degenerative disc disease), lumbar (ICD-10 - M51.36) 10/07/2024 penitentiary (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 of opiate analgesic (ICD-10 - Z79.891) 10/07/2024 long term care administrator (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 of 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 (ICD-10 - Z79.01) 10/07/2024 Other The above-named patient was evaluated in [...] 50 MG take 1 tablet by cathy th every 12 hours as needed Oral every 12 hours for 30 days 10/07/2024 MAY FILL 10/18 Treatment Notes Assessment Notes Radiculopathy, cervical region [...] to fully comply with the above. The [place] and [place] PDMP were reviewed and were appropriate Other [...] Weeks OPV, Reas on: Provider Name:Ok Sheppard brinda asher, 03/28/2025 11:00:00 AM, [address] [place], [address], Progress Notes * Examination Category Sub-Category Detail Notes Category Not es Examination/ Pre-Anesthesia Assessment General: The patient is alert and rigoberto ented X 3 in moderate distress secondary to pain UDS 09/09/24 compliant HEENT: Normocephalic, atrau matic. PERRL. The [...] patient's typical axial low back pain. Galo's, [place]'s and Gaenslen's are positive bilaterally. There is [...]
--- OUTSIDE RECORDS SUMMARY | 2024-11-05 04:45 | XMS_ITS ---
Author Organization [facility] Address [address] [facility] [place] [address] Care Team Providers Care Suit Attendant Name Role Phone ROHIT AWAN MD Primary Care Provider Unavailab Ok Peña Unavailable [phone] REASON FOR VISIT FOLLOW UP Encounters Encounter Location Date Provider Diagnosis [facility] [address] [facility] [place] [address] 11/05/2024 Ok Suarez PLAN OF TREATMENT Next Appt Details Provider Name:Ok asher, 03/28/2025 11:00:00 AM, [address] [facility] [place], [address],
--- OUTSIDE RECORDS SUMMARY | 2024-11-09 04:30 | XMS_ITS ---
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 Name Role Phone ROHIT AWAN MD Primary Care Provider Brittny jacobson Ok Suarez Unavailable [phone] ALLERGIES No Known Allergies REASON FOR VISIT Follow Up, Right = Left Neck Pain MEDICATIONS Medication SIG (Take, Route, Frequency, Duration) Notes Start Date End Date Status Dicyclomine HCl 10 MG TAKE 1 CAPSULE BY MOUTH EVERY 6 HOURS NEEDED FOR CRAMPING/DIARRHEA Oral for 22 Active traMADol HCl 50 MG take 1 tablet by mouth every 12 hours as needed Oral every 12 hours for 30 days MAY FILL 11/26/24 11/09/2024 Active Narcan 4 MG/0.1ML as directed Nasally 1 actuation in one nostril 1 time nasally every 2-3 minutes as needed until the patient is responsive or EMS arrives for 1 days 10/09/2023 Active amLODIPine Besylate 5 MG TAKE 1 TABLET B Y MOUTH EVERY DAY IN THE EVENING Oral for 90 Active Metoprolol Succinate ER 50 MG TAKE 1 TABLET BY MOUTH EVERY DAY Oral for 90 Active Atorvastatin Calcium 20 MG TAKE 1 TABLET BY MOUTH EVERY DAY Oral for 90 Active Clopidogrel Bisulfate 75 MG TAKE 1 TABLET BY MOUTH EVERY DAY Oral for 90 Active Pramipexole Dihydrochloride 0.25 MG 1 tablet Orally Three a day Active Losartan Potassium 100 MG TAKE 1 TABLET BY MOUTH EVERY DAY Oral for 90 Active Loratadine 10 MG TAKE 1 TABLET BY MOUTH EVERY DAY NEEDED FOR ALLERGY Oral for 90 Active EnteraGam 5 GM as directed Orally Active CoQ10 30 MG as directed Orally Active PreserVision AREDS - as directed Orally Active K2-D3 5000 5000-90 [...] drug abuse. 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 The [place] and [place] PDMP were reviewed and were appropriate Other [...] OPV, Reas on: Provider Name:Ok Sheppard Ananda evangelistaandrew, 03/28/2025 11:00:00 AM, [address] [place], [address], Progress Notes * Examination Category [...] patient's typical axial low back pain. Galo's, [place]'s and Gaenslen's are positive bilaterally. There is [...]
--- OUTSIDE RECORDS SUMMARY | 2024-12-22 05:00 | XMS_ITS ---
Author Organization [facility] Address [address] [place] [address] SP[place] [address] Care Team Providers Care Receivable Executive Name Role Phone ROHIT AWAN MD Primary Care Provider Brittny jacobson Ok Suarez Unavailable [phone] ALLERGIES No Known Allergies REASON FOR VISIT Follow Up, Right = Left Neck Pain MEDICATIONS Medication SIG (Take, Route, Frequency, Duration) Notes Start Date End Date Status PreserVision AREDS - as directed Orally Active EnteraGam 5 GM as directed Orally Active Pramipexole Dihydrochloride 0.25 MG 1 tablet Orally Three a day Active Atorvastatin Calcium 20 MG TAKE 1 TABLET BY MOUTH EVERY DAY Oral for 90 Active CoQ10 30 MG as directed Orally Active Narcan 4 MG/0.1ML as directed Nasally 1 actuation in one nostril 1 time nasally every 2-3 minutes as needed until the patient is responsive or EMS arrives for 1 days 10/09/2023 Active K2-D3 5000 5000-90 UNIT-MCG as directed Orally Active amLODIPine Besylate 5 MG TAKE 1 TABLET B Y MOUTH EVERY DAY IN THE EVENING Oral for 90 Active traMADol HCl 50 MG take 1 tablet by mouth every 12 hours as needed Oral every 12 hours for 30 days MAY FILL 12/26/24 12/22/2024 Active Dicyclomine HCl 10 MG TAKE 1 CAPSULE BY MOUTH EVERY 6 HOURS NEEDED FOR CRAMPING/DIARRHEA Oral for 22 Active Clopidogrel Bisulfate 75 MG TAKE 1 TABLET BY MOUTH EVERY DAY Oral for 90 Active Losartan Potassium 100 MG TAKE 1 TABLET BY MOUTH EVERY DAY Oral for 90 Active Loratadine 10 MG TAKE 1 TABLET BY MOUTH EVERY DAY NEEDED FOR ALLERGY Oral for 90 Active Metoprolol Succinate ER 50 MG TAKE 1 TABLET BY MOUTH EVERY DAY Oral for 90 Active SOCIAL HISTORY Tobacco Use: Social History Observation Description Date Details (start date - stop date) Current Smoker NA - NA Sex Assigned At : Social History Observation Description Sex Assigned At Unknown Tobacco Use/Smoking Question Answer Notes Are you a current smoker How often do you smoke cigarettes? every day Are you interested in quitting? Not ready to gretchen t Alcohol Screen (Audit-C) Question Answer Notes Did you have a drink containing alcohol in the p ast year? No Points 0 Interpretation Negative Section Notes: The patient is retired. She is . The patient smokes one pack of cigarettes daily. She denies alcohol or illicit drug abuse. VITAL SIGNS Blood pressure systolic 130 mm Hg 12/23/19 25 Blood pressure diastolic 77 mm Hg 025 Heart Rate 61 /min 12/22/2024 Respiratory Rate 18 /min 12/22/2024 Height 5 ft 5 in in 12/22/2024 Weight 157 lbs 12/22/2024 BMI 26.12 kg/m2 12/22/2024 Encounters Encounter Location Date Provider Diagnosis [facility] [address] [place] [id number] 12/22/2024 Ok Suarez Spondylosis without myelopathy or radiculopathy, cervical region M47.812 ; Radiculopathy, cervical region M54.12 ; Radiculopathy, lumbar region M54.16 ; Spondylosis without myelopathy or radiculopathy, 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 ; Postlaminectomy syndrome, not elsewhere classified M96.1 ; DDD (degenerative disc disease), lumbar M51.36 ; skilled nursing (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 of opiate analgesic Z79.891 and superintendent terminal (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 of 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 Z79.01 ASSESSMENTS Encounter Date Diagnosis Assessment Notes Treatment Notes Treatment Clinical Notes Section Notes 12/22/2024 Spondylosis without myelopathy or radiculopathy, cervical region (ICD-10 - M47.812) 12/22/2024 Radiculopathy, cervical region (ICD-10 - M54.12) 12/22/2024 Radiculopathy, lumbar region (ICD-10 - M54.16) 12/22/2024 Spondylosis without myelopathy or radiculopathy, 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 The [place] and [place] PDMP were reviewed and were appropriate 12/22/2024 DDD (degenerative disc disease), lumbar (ICD-10 - M51.36) 12/22/2024 skilled nursing (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 of opiate analgesic (ICD-10 - Z79.891) The patient submitted a urine sample for drug screening to ensure compliance. 12/22/2024 superintendent terminal (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 of 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 (ICD-10 - Z79.01) 12/22/2024 Other The above-named patient was evaluated in [...] Oral every 12 hours for 30 days 12/22/2024 MAY FILL 12/26 Treatment Notes Assessment Notes Postlaminectomy syndrome, no t elsewhere classified The side effects of opioid analgesics including [...] to fully comply with the above. The [place] and [place] PDMP were reviewed and were appropriate superintendent terminal (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 of o piate analgesic The [...] OPV, Reas on: Provider Name:Ok Sheppard brinda niaduandrew, 03/28/2025 11:00:00 AM, [address] [place], [address], Progress Notes * Examination Category [...] patient's typical axial low back pain. Galo's, [place]'s and Gaenslen's are positive bilaterally. There is [...] and Follow-up: Follow-up Plan documen lee:: Yes [facility] Quality 2020: MIPS Documented:: Compliant
--- OUTSIDE RECORDS SUMMARY | 2025-01-24 05:15 | XMS_ITS ---
Author Organization [facility] Address [address] [place] [address] [place] [address] Care Team Providers Care Supervisor Anodizing Name Role Phone ROHIT AWAN MD Primary Care Provider Brittny jacobson Ok Suarez Unavailable [phone] ALLERGIES No Known Allergies REASON FOR VISIT [...] NEEDED FOR ALLERGY Oral for 90 Active K2-D3 5000 5000-90 UNIT-MCG as directed Orally Active CoQ10 30 MG as directed Orally Active PreserVision AREDS - as directed Orally Active EnteraGam 5 GM as directed Orally Active Pramipexole Dihydrochloride 0.25 MG 1 tablet Orally Three a day Active Narcan 4 MG/0.1ML as directed Nasally [...] 12 hours for 30 days MAY FILL 01/28/25 01/24/2025 Active amLODIPine Besylate 5 MG TAKE 1 TABLET B Y MOUTH EVERY DAY IN THE EVENING Oral for 90 Active SOCIAL HISTORY Tobacco [...] drug abuse. VITAL SIGNS Blood pressure systolic 142 mm Hg 01/25/20 25 Blood pressure diastolic 83 mm Hg 025 Heart Rate 62 /min 01/24/2025 Respiratory Rate 16 /min 01/24/2025 Height 5 ft 5 in in 01/24/2025 Weight 155 lbs 01/24/2025 BMI 25.79 kg/m2 01/24/2025 Encounters Encounter Location Date Provider Diagnosis [facility] [address] [place] [phone] 01/24/2025 Ok Suarez Radiculopathy, cervical region M54.12 ; Postlaminectomy syndrome, not elsewhere classified M96.1 ; Spondylosis without myelopathy or radiculopathy, cervical region M47.812 ; Radiculopathy, lumbar region M54.16 ; Spondylosis without myelopathy or radiculopathy, 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 The [place] and [place] PDMP were reviewed and were appropriate Other [...] 4 Weeks OPV, Reas on: Provider Name:Ok Malave lakeshia, 03/28/2025 11:00:00 AM, [address] [place], [address], Progress Notes * Examination Category Sub-Category Detail [...] patient's typical axial low back pain. Galo's, [place]'s and Gaenslen's are positive bilaterally. There is [...] and Follow-up: Follow-up Plan documen lee:: Yes MIPS Quality 2020: MIPS Documented:: Compliant
--- OUTSIDE RECORDS SUMMARY | 2025-02-14 05:00 | XMS_ITS ---
Author Organization [facility] Address [address] [place] [address] [place] [address] Care Team Providers Care Building Supervisor Name Role Phone ROHIT AWAN MD Primary Care Provider Brittny jacobson Ok Suarez Unavailable [phone] ALLERGIES No Known Allergies REASON FOR VISIT Follow Up, Right = Left Neck Pain MEDICATIONS Medication SIG (Take, Route, Frequency, Duration) Notes Start Date End Date Status Losartan Potassium 100 MG TAKE 1 TABLET BY MOUTH EVERY DAY Oral for 90 Active EnteraGam 5 GM [...] 12 hours for 30 days MAY FILL 02/28/25 02/14/2025 Active K2-D3 5000 5000-90 UNIT-MCG as directed Orally Active CoQ10 30 MG as directed Orally Active Dicyclomine HCl 10 MG TAKE 1 CAPSULE BY MOUTH EVERY 6 HOURS NEEDED FOR CRAMPING/DIARRHEA Oral for 22 Active PreserVision AREDS - as directed Orally Active Metoprolol Succinate ER 50 MG TAKE 1 TABLET BY MOUTH EVERY DAY Oral for 90 Active Loratadine 10 MG TAKE 1 TABLET BY MOUTH EVERY DAY NEEDED FOR ALLERGY Oral for 90 Active Narcan 4 MG/0.1ML [...] drug abuse. VITAL SIGNS Blood pressure systolic 135 mm Hg 02/15/20 Blood pressure diastolic 77 mm Hg 025 Heart Rate 63 /min 02/14/2025 Respiratory Rate 18 /min 02/14/2025 Height 5 ft 5 in in 02/14/2025 Weight 156 lbs 02/14/2025 BMI 25.96 kg/m2 02/14/2025 Encounters Encounter Location Date Provider Diagnosis [facility] [address] [place] [phone] 02/14/2025 Ok Suarez Radiculopathy, cervical region M54.12 ; Postlaminectomy syndrome, not elsewhere classified M96.1 ; Spondylosis without myelopathy or radiculopathy, cervical region M47.812 ; Radiculopathy, lumbar region M54.16 ; Spondylosis without myelopathy or radiculopathy, 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 The [place] and [place] PDMP were reviewed and were appropriate [...] Name:Ok Malave lakeshia, 03/28/2025 11:00:00 AM, [address] [place], [address], Progress Notes * Examination Category Sub-Category Detail [...] patient's typical axial low back pain. Galo's, [place]'s and Gaenslen's are positive bilaterally. There is [...]
--- NOTE | ~2025-03-08 | MM_ITS ---
EXAMINATION: MM screening yin BI w liss HISTORY: Screening TECHNIQUE: Craniocaudal and mediolateral oblique 3-D tomosynthesis images were obtained and synthetic 2-D images were generated. CAD analysis was submitted and interpreted. COMPARISON: Comparison to multiple prior studies sequentially, with oldest reviewed study dated 03/25/2022. BREAST PARENCHYMAL COMPOSITION: Dense: The breasts are extremely dense, which lowers the sensitivity of mammography. FINDINGS: There is no evidence of suspicious mass, calcification, or architectural distortion to suggest malignancy in either breast. There has been no suspicious interval change. IMPRESSION: 1. No mammographic evidence of malignancy. 2. Recommend routine screening mammography in one year. BI-RADS Category 1: Negative Reviewed, dictated and finalized at location B. NHOUSE STAFF
--- OUTSIDE RECORDS SUMMARY | 2025-03-08 14:33 | XMS_ITS | Clinical Summary ---
Author Organization [facility] Address [address] [place] [address] Care Team Providers Care Perinatal Coordinator Name Role Phone Vitaliy Merrill MD Primary Care Provider [phone] Source Comments [facility],non-[facility] Affiliates and Associated Physician Practices is amultiple site organization consisting of ambulatory clinics and hospital sitesin [place], [place], [place] and [place]. This disclosure is being madepursuant to the Care Everywhere program and may not contain all information available regarding this patient. Last updated [email or web address] Social History Tobacco Use Types Packs/Day Years Used Date Smoking Tobacco: Never Assessed Comments Unknown Sex and Gender Information Value Date Recorded Sex Assigned at Not on file Legal Sex Female 3:24 PM CDT Gender Identity Not on file Sexual Orientation Not on file Plan of Treatment Health Maintenance Due Date Last Done Comments BONE DENSITY TESTING 1950 HEPATITIS C SCREENING 11/11/1966 DTAP/TDAP/TD VACCINES (1 - Tdap) 11/16/1967 PNEUMOCOCCAL VACCINE 50+ (1 of 1 - PCV) 1998 ZOSTER VACCINE (1 of 2) 1998 Respiratory Syncytial Virus (RSV) Vaccine Pt: or over 60 yrs (1 - 1-dose 75+ series) 11/16/2023 DEPRESSION SCREENING 04/28/2024 COVID-19 VACCINE ( - 2023-2 5 season) 2024 INFLUENZA VACCINE (#1) 2024 HEPATITIS B VACCINE Aged Out No longe r eligible based on patient's age to complete this topic HIB VACCINE Aged Out No longer eligi ble based on patient's age to complete this topic HPV VACCINE Aged Out No longer eligi ble based on patient's age to complete this topic MENINGOCOCCAL (Group B) VACC INE SHARED DECISION-MAKING Aged Out No longer eligibl e based on patient's age to complete this topic MENINGOCOCCAL GROUPS A/C/Y/W VACCINE Aged Out No longer eligible b ased on patient's age to complete this topic Insurance [employer] [facility] [place]: [facility] [id number] [place] [address] MEDICARE Care Teams Perinatal Coordinator Relationship Specialty Start Date End Date Vitaliy Merrill MD [address] [address] PCP - General Internal Medicine 07/28/14
--- OUTSIDE RECORDS SUMMARY | 2025-03-08 14:34 | XMS_ITS | Patient Health Record ---
Author Organization [facility] Address [address] [place] [address] [place] [address] Care Team Providers Care Family Physician Name Role Phone ROHIT AWAN MD Primary Care Provider Unavailab kavon Ok Suarez Unavailable [phone] ALLERGIES No Known Allergies RESULTS Component Value Reference Range Notes [facility] Results (Not yet reviewed by provider) Interpretation: Performing Lab:[id number] [facility] [employer], [address] [address] [facility] [address] Dayan Marin MD Notes/Report: REJECT. QUANTITY NOT SUFFICIENT. UNABLE TO PROCESS. - Codeine Quantification cancelled 50 Morphine Quantification cancelled 50 Hydrocodone Quantification cancelled 50 Norhydrocodone Quantification cancelled 50 Hydromorphone Quantification cancelled 50 Oxycodone Quantification cancelled 50 Noroxycodone Quantification cancelled 50 Oxymorphone Quantification cancelled 50 Fentanyl Quantification cancelled 1 Norfentanyl Quantification cancelled 8 Methadone Quantification cancelled 100 EDDP (Methadone metabolite) Quantification cancelled 100 Tramadol Quantification cancelled 100 P-rhycqajcv-ehhocqpl Quantification cancelled 100 B-Hhpkoycrf-Hqwmpmjj Quantification cancelled 100 Alpha-Hydroxyalprazolam Quantification cancelled 20 8-Gqsau-Jzcklevlvr Quantification cancelled 20 Lorazepam Quantification cancelled 40 Nordiazepam Quantification cancelled 40 Temazepam Quantification cancelled 50 Oxazepam Quantification cancelled 40 Amphetamine Quantification cancelled 100 Methamphetamine Quantification cancelled 100 Methamphetamine D/L-isomer r esolution Quantification cancelled % d-isomer Cocaine metabolite Quantification cancelled 50 cTHC (Marijuana metabolite) Quantification cancelled 15 6-KATHLEEN (Heroin metabolite) Quantification cancelled 10 Acetyl fentanyl Quantification cancelled 2 Acetyl norfentanyl Quantification cancelled 5 Acryl fentanyl Quantification cancelled 1 Carfentanil Quantification cancelled 2 Para-fluorofentanyl Quantification cancelled 1 Mitragynine (Kratom alkaloid) Quantification cancelled 1 8-JL-Qlsndcqhlli (Kratom alk aloid) Quantification cancelled 1 Ethyl Glucuronide Quantification cancelled 500 Ethyl Sulfate Quantification cancelled 500 [facility] Results (Not yet reviewed by provider) Interpretation: Performing Lab:[id number] [facility], [facility], [address] [address] [facility] [address] Dayan Marin MD Notes/Report: Acetyl fentanyl: Fentanyl Negative. Acetyl norfentanyl: Fentanyl Negative. Acr yl fentanyl: Fentanyl Negative. Carfentanil: Fentanyl Negative. Para-fluorofent anyl: Fentanyl Negative. Codeine Quantification negative 50 ng/mL Morphine Quantification negative 50 ng/mL Hydrocodone Quantification negative 50 ng/mL Norhydrocodone Quantification negative 50 ng/mL Hydromorphone Quantification negative 50 ng/mL Oxycodone Quantification negative 50 ng/mL Noroxycodone Quantification negative 50 ng/mL Oxymorphone Quantification negative 50 ng/mL Fentanyl Quantification negative 1 ng/mL Norfentanyl Quantification negative 8 ng/mL Methadone Quantification negative 100 ng/mL EDDP (Methadone metabolite) Quantification negative 100 ng/mL Tramadol Quantification positive-> 93337 100 ng/mL C-dtvamwzjk-olagzwqo Quantification positive-> 71793 1 00 ng/mL M-Ewnabstqq-Ywbowzzt Quantification positive-2352.245 100 ng/mL Alpha-Hydroxyalprazolam Quantification negative 20 ng/mL 1-Gview-Rwdyjrekiy Quantification negative 20 ng/m L Lorazepam Quantification negative 40 ng/mL Nordiazepam Quantification negative 40 ng/mL Temazepam Quantification negative 50 ng/mL Oxazepam Quantification negative 40 ng/mL Amphetamine Quantification negative 100 ng/mL Methamphetamine Quantification negative 100 ng/mL Cocaine metabolite Quantification negative 50 ng/m L cTHC (Marijuana metabolite) Quantification positive-16 9.202 15 ng/mL 6-KATHLEEN (Heroin metabolite) Quantification negative 10 ng/mL Acetyl fentanyl Quantification Fen Neg 2 ng/mL Acetyl norfentanyl Quantification Fen Neg 5 ng/mL Acryl fentanyl Quantification Fen Neg 1 ng/mL Carfentanil Quantification Fen Neg 2 ng/mL Para-fluorofentanyl Quantification Fen Neg 1 ng/m L Mitragynine (Kratom alkaloid) Quantification negative 1 ng/mL 9-PC-Epcrmlwvjqx (Kratom alk aloid) Quantification negative 1 ng/mL Ethyl Glucuronide Quantification negative 500 ng/m L Ethyl Sulfate Quantification negative 500 ng/mL [facility] (Not yet reviewed by provider) Interpretation: Performing Lab:[id number] [facility], [address] [address] [facility] [address] Dayan Marin MD Notes/Report: Acetyl fentanyl: Fentanyl Negative. Acetyl norfentanyl: Fentanyl Negative. Acr yl fentanyl: Fentanyl Negative. Carfentanil: Fentanyl Negative. Para-fluorofent anyl: Fentanyl Negative. Codeine Quantification negative 50 ng/mL Morphine Quantification negative 50 ng/mL Hydrocodone Quantification negative 50 ng/mL Norhydrocodone Quantification negative 50 ng/mL Hydromorphone Quantification negative 50 ng/mL Oxycodone Quantification negative 50 ng/mL Noroxycodone Quantification negative 50 ng/mL Oxymorphone Quantification negative 50 ng/mL Fentanyl Quantification negative 1 ng/mL Norfentanyl Quantification negative 8 ng/mL Methadone Quantification negative 100 ng/mL EDDP (Methadone metabolite) Quantification negative 100 ng/mL Tramadol Quantification positive-> 91601 100 ng/mL T-wwxihqtkz-ebcpmhrk Quantification positive-> 52617 1 00 ng/mL K-Uykdxatys-Msjwihxr Quantification positive-5095.612 100 ng/mL Alpha-Hydroxyalprazolam Quantification negative 20 ng/mL 7-Smuup-Xorrerhmua Quantification negative 20 ng/m L Lorazepam Quantification negative 40 ng/mL Nordiazepam Quantification negative 40 ng/mL Temazepam Quantification negative 50 ng/mL Oxazepam Quantification negative 40 ng/mL Amphetamine Quantification negative 100 ng/mL Methamphetamine Quantification negative 100 ng/mL Cocaine metabolite Quantification negative 50 ng/m L cTHC (Marijuana metabolite) Quantification positive-19 4.199 15 ng/mL 6-KATHLEEN (Heroin metabolite) Quantification negative 10 ng/mL Acetyl fentanyl Quantification Fen Neg 2 ng/mL Acetyl norfentanyl Quantification Fen Neg 5 ng/mL Acryl fentanyl Quantification Fen Neg 1 ng/mL Carfentanil Quantification Fen Neg 2 ng/mL Para-fluorofentanyl Quantification Fen Neg 1 ng/m L Mitragynine (Kratom alkaloid) Quantification negative 1 ng/mL 8-AT-Accyvnddwwj (Kratom alk aloid) Quantification negative 1 ng/mL Ethyl Glucuronide Quantification negative 500 ng/m L Ethyl Sulfate Quantification negative 500 ng/mL [employer] Results (Not yet reviewed by provider) Interpretation: Performing Lab:[id number] [email or web address], [address] [address] [facility] [address] Dayan Marin MD Notes/Report: Acetyl fentanyl: Fentanyl Negative. Acetyl norfentanyl: Fentanyl Negative. Acr yl fentanyl: Fentanyl Negative. Carfentanil: Fentanyl Negative. Para-fluorofent anyl: Fentanyl Negative. Codeine Quantification negative 50 ng/mL Morphine Quantification negative 50 ng/mL Hydrocodone Quantification negative 50 ng/mL Norhydrocodone Quantification negative 50 ng/mL Hydromorphone Quantification negative 50 ng/mL Oxycodone Quantification negative 50 ng/mL Noroxycodone Quantification negative 50 ng/mL Oxymorphone Quantification negative 50 ng/mL Fentanyl Quantification negative 1 ng/mL Norfentanyl Quantification negative 8 ng/mL Methadone Quantification negative 100 ng/mL EDDP (Methadone metabolite) Quantification negative 100 ng/mL Tramadol Quantification positive-> 97055 100 ng/mL E-ofjrjkrup-mrnbbvzv Quantification positive-> 33628 1 00 ng/mL F-Ecbgqjmhq-Qglytgmd Quantification positive-2382.298 100 ng/mL Alpha-Hydroxyalprazolam Quantification negative 20 ng/mL 6-Bifls-Rfulhlbegv Quantification negative 20 ng/m L Lorazepam Quantification negative 40 ng/mL Nordiazepam Quantification negative 40 ng/mL Temazepam Quantification negative 50 ng/mL Oxazepam Quantification negative 40 ng/mL Amphetamine Quantification negative 100 ng/mL Methamphetamine Quantification negative 100 ng/mL Cocaine metabolite Quantification negative 50 ng/m L cTHC (Marijuana metabolite) Quantification positive-69 0.928 15 ng/mL 6-KATHLEEN (Heroin metabolite) Quantification negative 10 ng/mL Acetyl fentanyl Quantification Fen Neg 2 ng/mL Acetyl norfentanyl Quantification Fen Neg 5 ng/mL Acryl fentanyl Quantification Fen Neg 1 ng/mL Carfentanil Quantification Fen Neg 2 ng/mL Para-fluorofentanyl Quantification Fen Neg 1 ng/m L Mitragynine (Kratom alkaloid) Quantification negative 1 ng/mL 6-NE-Mgcvghhtsrb (Kratom alk aloid) Quantification negative 1 ng/mL Ethyl Glucuronide Quantification positive-922.902 500 ng/mL Ethyl Sulfate Quantification positive-571.249 500 ng/m L [facility] (Not yet reviewed by provider) Interpretation: Performing Lab:[id number] [facility], [facility], [address] [address] [facility] [address] Dayan Marin MD Notes/Report: Acetyl fentanyl: Fentanyl Negative. Acetyl norfentanyl: Fentanyl Negative. Acr yl fentanyl: Fentanyl Negative. Carfentanil: Fentanyl Negative. Para-fluorofent anyl: Fentanyl Negative. Codeine Quantification negative 50 ng/mL Morphine Quantification negative 50 ng/mL Hydrocodone Quantification negative 50 ng/mL Norhydrocodone Quantification negative 50 ng/mL Hydromorphone Quantification negative 50 ng/mL Oxycodone Quantification negative 50 ng/mL Noroxycodone Quantification negative 50 ng/mL Oxymorphone Quantification negative 50 ng/mL Fentanyl Quantification negative 1 ng/mL Norfentanyl Quantification negative 8 ng/mL Methadone Quantification negative 100 ng/mL EDDP (Methadone metabolite) Quantification negative 100 ng/mL Tramadol Quantification positive-6491.923 100 ng/mL B-cjlibkmvh-cyubrkvw Quantification positive-77235.363 100 ng/mL O-Gizcxbwsk-Vzkmzemr Quantification positive-856.982 1 00 ng/mL Alpha-Hydroxyalprazolam Quantification negative 20 ng/mL 0-Brdos-Rwzicjdhip Quantification negative 20 ng/m L Lorazepam Quantification negative 40 ng/mL Nordiazepam Quantification negative 40 ng/mL Temazepam Quantification negative 50 ng/mL Oxazepam Quantification negative 40 ng/mL Amphetamine Quantification negative 100 ng/mL Methamphetamine Quantification negative 100 ng/mL Cocaine metabolite Quantification negative 50 ng/m L cTHC (Marijuana metabolite) Quantification positive-10 0.217 15 ng/mL 6-KATHLEEN (Heroin metabolite) Quantification negative 10 ng/mL Acetyl fentanyl Quantification Fen Neg 2 ng/mL Acetyl norfentanyl Quantification Fen Neg 5 ng/mL Acryl fentanyl Quantification Fen Neg 1 ng/mL Carfentanil Quantification Fen Neg 2 ng/mL Para-fluorofentanyl Quantification Fen Neg 1 ng/m L Mitragynine (Kratom alkaloid) Quantification negative 1 ng/mL 5-LW-Vfdouspaqkn (Kratom alk aloid) Quantification negative 1 ng/mL Ethyl Glucuronide Quantification negative 500 ng/m L Ethyl Sulfate Quantification negative 500 ng/mL REASON FOR REFERRAL No Information MEDICATIONS Medication SIG (Take, Route, Frequency, Duration) Notes Start Date End Date Status Losartan Potassium 100 MG TAKE 1 TABLET BY MOUTH EVERY DAY Oral for 90 Active Loratadine 10 MG TAKE 1 TABLET BY MOUTH EVERY DAY NEEDED FOR ALLERGY Oral for 90 Active EnteraGam 5 GM as directed Orally Active traMADol HCl 50 MG take 1 tablet by mouth every 12 hours as needed Oral every 12 hours for 30 days MAY FILL 02/28/25 02/14/2025 Active Pramipexole Dihydrochloride 0.25 MG 1 tablet [...] IN THE EVENING Oral for 90 Active CoQ10 30 MG [...] She denies alcohol or illicit drug abuse. The patient is retired. She is . The patient smokes one pack of cigarettes daily. She denies alcohol or illicit drug abuse. The patient is retired. She is . The patient smokes one pack of cigarettes daily. She denies alcohol or illicit drug abuse. The patient is retired. She is . The patient smokes one pack of cigarettes daily. She denies alcohol or illicit drug abuse. The patient is retired. She is . The patient smokes one pack of cigarettes daily. She denies alcohol or illicit drug abuse. The patient is retired. She is . The patient smokes one pack of cigarettes daily. She denies alcohol or illicit drug abuse. The patient is retired. She is . The patient smokes one pack of cigarettes daily. She denies alcohol or illicit drug abuse. The patient is retired. She is . The patient smokes one pack of cigarettes daily. She denies alcohol or illicit drug abuse. The patient is retired. She is . The patient smokes one pack of cigarettes daily. She denies alcohol or illicit drug abuse. The patient is retired. She is . The patient smokes one pack of cigarettes daily. She denies alcohol or illicit drug abuse. The patient is retired. She is . The patient smokes one pack of cigarettes daily. She denies alcohol or illicit drug abuse. The patient is retired. She is . The patient smokes one pack of cigarettes daily. She denies alcohol or illicit drug abuse. The patient is retired. She is . The patient smokes one pack of cigarettes daily. She denies alcohol or illicit drug abuse. The patient is retired. She is . The patient smokes one pack of cigarettes daily. She denies alcohol or illicit drug abuse. The patient is retired. She is . The patient smokes one pack of cigarettes daily. She denies alcohol or illicit drug abuse. The patient is retired. She is . The patient smokes one pack of cigarettes daily. She denies alcohol or illicit drug abuse. The patient is retired. She is . The patient smokes one pack of cigarettes daily. She denies alcohol or illicit drug abuse. The patient is retired. She is . The patient smokes one pack of cigarettes daily. She denies alcohol or illicit drug abuse. The patient is retired. She is . The patient smokes one pack of cigarettes daily. She denies alcohol or illicit drug abuse. The patient is retired. She is . The patient smokes one pack of cigarettes daily. She denies alcohol or illicit drug abuse. The patient is retired. She is . The patient smokes one pack of cigarettes daily. She denies alcohol or illicit drug abuse. The patient is retired. She is . The patient smokes one pack of cigarettes daily. She denies alcohol or illicit drug abuse. The patient is retired. She is . The patient smokes one pack of cigarettes daily. She denies alcohol or illicit drug abuse. The patient is retired. She is . The patient smokes one pack of cigarettes daily. She denies alcohol or illicit drug abuse. 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 Cervical spondylosis without myelopathy (697162577) Problem Radiculopathy, cervical region (M54.12) Active confirmed Cervical radiculopathy (02197800) Problem Radiculopathy, lumbar region (M54.16) Active confirmed Lumbar radiculopathy (918996942) Problem Postlaminectomy syndrome, not elsewhere classified (M96.1) Active confirmed Post-lami nectomy syndrome (04353458) 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 Long-term current use of anticoagulant (167218024) Problem [facility] (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 of opiate analgesic (Z79.891) Active confirmed High risk drug monitoring status (697101597) Problem DDD (degenerative disc disease), lumbar (M51.36) Active confirmed Degenerative disc disease (97387331) VITAL SIGNS Heart Rate 63 /min 02/14/2025 Respiratory Rate 18 /min 02/14/2025 Blood pressure diastolic 77 mm Hg 02/14/2025 Height 5 ft 5 in in 02/14/2025 Blood pressure systolic 135 mm Hg 02/14/2025 Weight 156 lbs 02/14/2025 BMI 25.96 kg/m2 02/14/2025 Encounters Encounter Location Date Provider Diagnosis [facility] [address] [place] [address] 03/08/2024 Ok Suarez Spondylosis without myelopathy or radiculopathy, cervical region M47.812 ; Spondylosis without myelopathy or radiculopathy, 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 ; Radiculopathy, lumbar region M54.16 ; Postlaminectomy syndrome, not elsewhere classified M96.1 ; DDD (degenerative disc disease), lumbar M51.36 ; 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 opiate analgesic Z79.891 and 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 Z79.01 [facility] [address] [place] [phone] 03/15/2024 Ok Stynowick [facility] [address] [place] [phone] 04/16/2024 Ok Stynowick Spondylosis without myelopathy or radiculopathy, cervical region M47.812 ; Radiculopathy, lumbar region M54.16 ; Spondylosis without myelopathy or radiculopathy, 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 ; Postlaminectomy syndrome, not elsewhere classified M96.1 ; DDD (degenerative disc disease), lumbar M51.36 ; [facility] (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 of opiate analgesic Z79.891 and [facility] (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 of 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 Z79.01 [facility] [address] [place] [phone] 05/13/2024 Ok Stynowick Spondylosis without myelopathy or radiculopathy, cervical region M47.812 ; Radiculopathy, lumbar region M54.16 ; Spondylosis without myelopathy or radiculopathy, 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 ; Postlaminectomy syndrome, not elsewhere classified M96.1 ; DDD (degenerative disc disease), lumbar M51.36 ; [facility] (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 of opiate analgesic Z79.891 and 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 Z79.01 [facility] [address] [place] [phone] 06/10/2024 Ok Stynowick Spondylosis without myelopathy or radiculopathy, cervical region M47.812 ; Radiculopathy, lumbar region M54.16 ; Spondylosis without myelopathy or radiculopathy, 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 ; Postlaminectomy syndrome, not elsewhere classified M96.1 ; DDD (degenerative disc disease), lumbar M51.36 ; 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 opiate analgesic Z79.891 and [facility] (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 of 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 Z79.01 [facility] [address] [place] [phone] 07/08/2024 Ok Stjessicaick Spondylosis without myelopathy or radiculopathy, cervical region M47.812 ; Radiculopathy, cervical region M54.12 ; Radiculopathy, lumbar region M54.16 ; Spondylosis without myelopathy or radiculopathy, 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 ; Postlaminectomy syndrome, not elsewhere classified M96.1 ; DDD (degenerative disc disease), lumbar M51.36 ; 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 analgesic Z79.891 and 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 Z79.01 [facility] [address] [place] [phone] 08/05/2024 Ok Stynowick Spondylosis without myelopathy or radiculopathy, cervical region M47.812 ; Radiculopathy, cervical region M54.12 ; Radiculopathy, lumbar region M54.16 ; Spondylosis without myelopathy or radiculopathy, 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 ; Postlaminectomy syndrome, not elsewhere classified M96.1 ; DDD (degenerative disc disease), lumbar M51.36 ; 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 opiate analgesic Z79.891 and 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 Z79.01 [facility] [address] [place] [phone] 09/04/2024 ROHIT AWAN [facility] [address] [place] [phone] 09/06/2024 Ok Stjessicaick [facility] [address] [place] [phone] 09/09/2024 Ok Stynowick Spondylosis without myelopathy or radiculopathy, cervical region M47.812 ; Radiculopathy, cervical region M54.12 ; Radiculopathy, lumbar region M54.16 ; Spondylosis without myelopathy or radiculopathy, 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 ; Postlaminectomy syndrome, not elsewhere classified M96.1 ; DDD (degenerative disc disease), lumbar M51.36 ; 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 analgesic Z79.891 and 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 Z79.01 [facility] [address] [place] [address] 10/07/2024 Ok Stbrindaowick Spondylosis without myelopathy or radiculopathy, cervical region M47.812 ; Radiculopathy, cervical region M54.12 ; Radiculopathy, lumbar region M54.16 ; Spondylosis without myelopathy or radiculopathy, 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 ; Postlaminectomy syndrome, not elsewhere classified M96.1 ; DDD (degenerative disc disease), lumbar M51.36 ; [facility] (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 of opiate analgesic Z79.891 and [facility] (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 of 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 Z79.01 [facility] [address] [place] [phone] 11/05/2024 Ok Stbrindaowick [facility] [address] [place] [phone] 11/09/2024 Ok Stbrindaowick Spondylosis without myelopathy or radiculopathy, cervical region M47.812 ; Radiculopathy, cervical region M54.12 ; Radiculopathy, lumbar region M54.16 ; Spondylosis without myelopathy or radiculopathy, 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 ; Postlaminectomy syndrome, not elsewhere classified M96.1 ; DDD (degenerative disc disease), lumbar M51.36 ; 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 analgesic Z79.891 and [facility] (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 of 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 Z79.01 [facility] [address] [place] [phone] 12/22/2024 Ok Stbrindaowick Spondylosis without myelopathy or radiculopathy, cervical region M47.812 ; Radiculopathy, cervical region M54.12 ; Radiculopathy, lumbar region M54.16 ; Spondylosis without myelopathy or radiculopathy, 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 ; Postlaminectomy syndrome, not elsewhere classified M96.1 ; DDD (degenerative disc disease), lumbar M51.36 ; [facility] (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 of opiate analgesic Z79.891 and 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 Z79.01 [facility] [address] [place] [phone] 01/24/2025 Ok Stynowick Radiculopathy, cervical region M54.12 ; Postlaminectomy syndrome, not elsewhere classified M96.1 ; Spondylosis without myelopathy or radiculopathy, cervical region M47.812 ; Radiculopathy, lumbar region M54.16 ; Spondylosis without myelopathy or radiculopathy, 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 ; DDD (degenerative disc disease), lumbar M51.36 ; 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 analgesic Z79.891 and 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 Z79.01 [facility] [address] [place] [phone] 02/14/2025 Ok Stynowick Radiculopathy, cervical region M54.12 ; Postlaminectomy syndrome, not elsewhere classified M96.1 ; Spondylosis without myelopathy or radiculopathy, cervical region M47.812 ; Radiculopathy, lumbar region M54.16 ; Spondylosis without myelopathy or radiculopathy, 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 ; DDD (degenerative disc disease), lumbar M51.36 ; 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 The [place] PDMP were reviewed and were appropriate 07/08/2024 Radiculopathy, cervical region (ICD-10 - M54.12) The patient was instructed to notify the office after imaging has been obtained so it can be reviewed and treatment plan formulated moving forward. Patient verbalized understanding and agrees with current plan. She was also given a new order for physical therapy in regards to her increased neck pain. A copy of the order was given to the patient at today's visit 07/08/2024 Spondylosis without myelopathy or radiculopathy, cervical region (ICD-10 - M47.812) She was also given a new order for physical therapy in regards to her increased neck pain. A copy of the order was given to the patient at today's visit., She currently denies a need for any injections or interventions at this time. She would like to return to the office after obtaining new cervical imaging or in one month, whichever comes first 09/09/2024 Spondylosis without myelopathy or radiculopathy, cervical region (ICD-10 - M47.812) 06/10/2024 Radiculopathy, lumbar region (ICD-10 - M54.16) The side effects of opioid analgesics including [...] to fully comply with the above. The [place] PDMP were reviewed and were appropriate 06/10/2024 Spondylosis without myelopathy or radiculopathy, cervical region (ICD-10 - M47.812) 05/13/2024 Radiculopathy, lumbar region (ICD-10 - M54.16) The side effects of opioid analgesics including [...] to fully comply with the above. The [place] were reviewed and were appropriate 05/13/2024 Spondylosis without myelopathy or radiculopathy, cervical region (ICD-10 - M47.812) 10/07/2024 Spondylosis without myelopathy or radiculopathy, cervical region (ICD-10 - M47.812) 04/16/2024 Radiculopathy, lumbar region (ICD-10 - M54.16) The side effects of opioid analgesics including [...] to fully comply with the above. 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 The [facility] PDMP were reviewed and were appropriate 07/08/2024 Radiculopathy, lumbar region (ICD-10 - M54.16) The side effects of opioid analgesics including [...] to fully comply with the above. The [facility] PDMP were reviewed and were appropriate 08/05/2024 Radiculopathy, lumbar region (ICD-10 - M54.16) 02/14/2025 Postlaminectomy syndrome, not elsewhere classified (ICD-10 [...] to fully comply with the above. 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 The [facility] PDMP were reviewed and were appropriate 10/07/2024 Radiculopathy, lumbar region (ICD-10 - M54.16) 03/08/2024 Radiculopathy, lumbar region (ICD-10 - M54.16) 11/09/2024 Radiculopathy, cervical region (ICD-10 - M54.12) [...] to fully comply with the above. 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) 03/08/2024 Postlaminectomy syndrome, not elsewhere classified (ICD-10 - M96.1) 01/24/2025 Radiculopathy, lumbar region (ICD-10 - M54.16) 04/16/2024 Postlaminectomy syndrome, not elsewhere classified (ICD-10 - M96.1) 10/07/2024 Spondylosis without myelopathy or radiculopathy, 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) 05/13/2024 Postlaminectomy syndrome, not elsewhere classified (ICD-10 - M96.1) 09/09/2024 Spondylosis without myelopathy or radiculopathy, 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) 12/22/2024 Spondylosis without myelopathy or radiculopathy, 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 The [place] were reviewed and were appropriate 07/08/2024 Postlaminectomy syndrome, not elsewhere classified (ICD-10 - M96.1) 06/10/2024 DDD (degenerative disc disease), lumbar (ICD-10 - M51.36) 05/13/2024 DDD (degenerative disc disease), lumbar (ICD-10 - M51.36) 04/16/2024 DDD (degenerative disc disease), lumbar (ICD-10 - M51.36) 03/08/2024 DDD (degenerative disc disease), lumbar (ICD-10 - M51.36) 07/08/2024 DDD (degenerative disc disease), lumbar (ICD-10 - M51.36) 02/14/2025 DDD (degenerative disc disease), lumbar (ICD-10 - M51.36) 06/10/2024 [facility] (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 of opiate analgesic (ICD-10 - Z79.891) 08/05/2024 DDD (degenerative disc disease), lumbar (ICD-10 - M51.36) 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 (ICD-10 - Z79.01) 01/24/2025 [facility] (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 of 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 (ICD-10 - Z79.01) 09/09/2024 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 (ICD-10 - Z79.01) 08/05/2024 [facility] (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 of 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 (ICD-10 - Z79.01) 02/14/2025 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 This note was dictated by WALLACE Leblanc Total time spent with patient and medical decision making 24 minutes 07/08/2024 Other The above-named patient was evaluated in [...] with Patient and Medical Decision Makin minutes 08/05/2024 Other The above-named patient was evaluated [...] with Patient and Medical Decision Makin minutes 09/09/2024 Other The above-named patient was evaluated [...] with Patient and Medical Decision Makin minutes 10/07/2024 Other The above-named patient was evaluated [...] with Patient and Medical Decision Makin minutes 11/09/2024 Other The above-named patient was evaluated [...] with Patient and Medical Decision Makin minutes 12/22/2024 Other The above-named patient was evaluated [...] with Patient and Medical Decision Makin minutes 01/24/2025 Other The above-named patient was evaluated [...] with Patient and Medical Decision Makin minutes 02/14/2025 Other The above-named patient was evaluated [...] Medical Decision Makin minutes PLAN OF TREATMENT Pending Test Test Name Order Date MRI : Cervical Spine without Contrast ([id number]) 07/08/2024 [facility] 09/09/2024 [facility] 12/22/2024 [facility] 02/14/2025 [facility] 09/25/2023 [facility] 12/04/2023 [facility] 04/15/2024 [facility] 05/12/2024 xray cervical spine 07/08/2024 Next Appt Details Provider Name:Ok Valarie asher, 03/28/2025 11:00:00 AM, [address] [place], [address], Insurance Providers Payer Name Payer Address Payer Phone Subscriber Number Group Number Insured Name Patient Relationship to Insured Coverage Start Date Coverage End Date [employer] [address] [place] [phone] [id number] ZAHRA BILLINGS Self - patient is the insured MEDICAL (GENERAL) HISTORY Medical History History ICD Code Hypertension CVA Fibromyalgia Rheumatoid arthritis Depression Anxiety Osteoporosis IBS Restless leg syndrome Surgical History Surgery Date(Month/Year) Thoracic surgery L3-4 laminectomy 2004 Parotidectomy 2009
--- OUTSIDE RECORDS SUMMARY | 2025-03-08 14:35 | XMS_ITS | Clinical Summary ---
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 Name Role Phone Sagar Moore MD Unavailable [phone] Siddhartha Gonzalez MD Primary Care Provider [phone] Allergies Active Allergy Reactions Criticality Noted Date Comments No Known Allergies Unknown Low Medications losartan (COZAAR) 100 mg tablet Take 1 tablet (100 mg total) by mouth daily 30 tablet 5 0 Active pramipexole (MIRAPEX) 0.25 mg tabletIndications :Primary fibromyalgia syndrome,Restless legs syndrome TAKE 1 TABLET BY MOUTH ONCE EVERY NIGHT BETWEEN 6-8 PM AND AT BEDTIME 180 tablet 1 2 Active traMADoL (ULTRAM) 50 mg tablet TAKE 1 TABLET BY MOUTH EVERY 12 HOURS NEEDED *DNF TIL 05/29* 3 Active metoprolol XL (TOPROL-XL) 50 mg extended release tablet Take 1 tablet (50 mg total) by mouth daily 3 Active dicyclomine (BENTYL) 10 mg capsule Take 1 capsule (10 mg total) by mouth every 6 (six) hours as needed (cramping, diarrhea) 90 capsule 11 4 Active amLODIPine (NORVASC) 5 mg tablet Take 1 tablet (5 mg total) by mouth every evening Active NOT IN DATABASE, PRESCRIPTION, Drug name: serum-derive d bovine immunoglobul in/protein isolate Dose: 1 packet Route: oral Frequency: Daily Duration: 30 days 30 each 11 5 Active NOT IN DATABASE, PRESCRIPTION, Drug name: serum-derive d bovine immunoglobul in/protein isolate Dose: 1 packet Route: oral Frequency: Daily Duration: 30 days 30 each 3 5 Active clopidogreL (PLAVIX) 75 mg tabletIndications :History of CVA (cerebrovascular accident) TAKE 1 TABLET BY MOUTH EVERY DAY 90 tablet 1 5 Active atorvastatin (LIPITOR) 40 mg tablet Take 1 tablet (40 mg total) by mouth nightly 5 Active Active Problems Problem Noted Date Diagnosed Date Menopause 01/20/2022 Assessment & Plan (01/20/2022 2:42 PM CDT): Check DEXA Breast cancer screening by mammogram 01/20/2022 Assessment & Plan (01/20/2022 2:42 PM CDT): Mammogram order provided BMI 28.0-28.9,adult 01/03/2022 Assessment & Plan (01/03/2022 1:41 PM CDT): Weight/BMI is in healthy range. Continue healthy lifestyle to maintain. Pain in both lower extremities 11/07/2021 Acute midline low back pain without sciatica Assessment & Plan (07/09/2021 12:14 AM CDT): Medical fall 2 weeks so. Will start with the sacrum and lumbar spine x-rays. Courage to ice and/or heat to the area as tolerated. Went discussed physical therapy at her previous visit and she had not considered to all scheduling. Pending the x-rays she may benefit from that and or pain management. She already has all tram be on she is written by her sleep specialist for one hs. Encouraged to use Ultram 50mg half tab bid and Tylenol/IBU Provided PT order at last visit. Fall 07/09/2021 Assessment & Plan (07/09/2021 12:14 AM CDT): See Back pain Neck pain 04/14/2021 Assessment & Plan (04/14/2021 8:44 PM SENIOR LINUX SYSTEMS ADMINISTRATOR): Patient woke up with pain in her neck. Will check an x-ray just to rule out any bony abnormalities. Suspect this is musculoskeletal. Denies any radiations into the arms or numbness into the arms or weakness into the arms. Encouraged topical products like the lidocaine patches. Encouraged to continue using ibuprofen as directed. Encouraged heat or ice as needed. Encouraged physical therapy which she declines at this time. Discussed increasing the Cymbalta for pain management and she also declined as states increases her tinnitus symptoms. Patient is requesting increasing the tramadol as her sleep provider is only providing 1 tonight. Advised that this type of pain as well as fibromyalgia we try to avoid narcotics. Advised she could try cutting that tramadol and half and coupling it with Tylenol and/or the ibuprofen to see if she is able to obtain pain control. Again encouraged physical therapy and other modalities pending the x-rays. Fibromyalgia 03/09/2021 Medicare annual wellness visit, subsequent 12/21 Assessment & Plan (01/01/2021 7:07 PM CDT): Encouraged healthy lifestyle, good nutrition and exercise. Encouraged Calcium and Vitamin D and weight bearing exercise for bone health. Reviewed immunizations. Reviewed age appropirate screenings. Medicare Wellness Documentation is completed within the chart History of colon polyps 10/26/2020 Overview (10/26/2020): Added automatically from request for surgery [id number] Assessment & Plan (01/20/2022 2:42 PM CDT): History of colon polyps. Due to repeat colonoscopy in 2023. Chronic pain of right thumb 07/16/2020 Assessment & Plan (01/01/2021 7:02 PM CDT): Encouraged to call the Ortho hand back and get back in since her pain has not improved. Assessment & Plan (07/16/2020 1:55 AM CDT): Persistent sxs. Unable to open doors Refer to [facility] for further evaluation. Annual physical exam 06/21/2020 Assessment & Plan (01/20/2022 2:42 PM CDT): Encouraged healthy lifestyle, good nutrition and exercise. Encouraged Calcium and Vitamin D and weight bearing exercise for bone health. Reviewed immunizations Reviewed age appropirate screenings. Assessment & Plan (07/16/2020 1:52 AM CDT): Encouraged healthy lifestyle, good nutrition and exercise. Encouraged Calcium and Vitamin D and weight bearing exercise for bone health. Reviewed immunizations Reviewed age appropirate screenings. Blister 01/21/2020 Assessment & Plan (01/21/2020 12:07 PM CDT): We discussed not popping or shaving on her own as infection risk would increase with these practices She was advised to attempt to adjust shoes, rest when possible Will retrieve notes and imaging from previous precision instrument maker, and will refer for second opinion Foot pain, right 01/21/2020 Assessment & Plan (01/21/2020 12:07 PM CDT): She was advised to attempt to adjust shoes, rest when possible Will retrieve notes and imaging from previous precision instrument maker, and will refer for second opinion Hyperglycemia 09/19/2019 Assessment & Plan (12/22/2023 11:48 AM CDT): A1c 6.0, to watch carbohydrates at this time Assessment & Plan (01/01/2021 7:01 PM CDT): Pre-diabetes/hyperglycemia is a precursor to Dm. Stressed importance of working on diet (decrease your simple sugars and one carbohydrate with each meal) and increase you exercise to achieve weight loss and this will help prevent you from progressing to diabetes. Assessment & Plan (07/16/2020 1:52 AM CDT): Pre-diabetes/hyperglycemia is a precursor to Dm. Stressed importance of working on diet (decrease your simple sugars and one carbohydrate with each meal) and increase you exercise to achieve weight loss and this will help prevent you from progressing to diabetes. Assessment & Plan (12/22/2019 12:04 PM CDT): This is a significant, separately identifiable problem that was evaluated and managed on the same day as the wellness exam Pre-diabetes/hyperglycemia is a precursor to Dm. Stressed importance of working on diet (decrease your simple sugars and one carbohydrate with each meal) and increase you exercise to achieve weight loss and this will help prevent you from progressing to diabetes. A1c improved from 5.9 to 5.6 Encouraged to continue with current plan to keep the A1c in normal range. Assessment & Plan (09/19/2019 8:18 PM CDT): Pre-diabetes/hyperglycemia is a precursor to Dm. Stressed importance of working on diet (decrease your simple sugars and one carbohydrate with each meal) and increase you exercise to achieve weight loss and this will help prevent you from progressing to diabetes. Moderate episode of recurrent major depressive d isorder 09/13/2019 Assessment & Plan (12/22/2023 11:48 AM CDT): Stable to see psychiatry soon Assessment & Plan (01/20/2022 2:41 PM CDT): Patient has stress and anxiety but is still not wanting to be on any type of medication. Feels like even the low-dose Cymbalta caused tenderness. She is going to discontinue it and wants to monitor her symptoms. She may call at any time for assistance Assessment & Plan (01/01/2021 7:02 PM CDT): Not fully controlled with Cymbalta 20mg but not willing to increase. She may call to increase dose if she desires. Assessment & Plan (07/16/2020 1:53 AM CDT): Continue cymblata Assessment & Plan (09/19/2019 8:21 PM CDT): Sxs are present but she denies treatment at this point Anxiety 09/13/2019 Assessment & Plan (12/22/2019 12:08 PM CDT): Managing without medication Assessment & Plan (09/19/2019 8:21 PM CDT): See depression OAB (overactive bladder) 09/13/2019 Assessment & Plan (07/16/2020 1:52 AM CDT): Pt prefers to monitor. May consider medication if sxs persist. On Vaginal estrogen Assessment & Plan (12/22/2019 12:03 PM CDT): This is a significant, separately identifiable problem that was evaluated and managed on the same day as the wellness exam Pt never started the Detrol. Reviewed risks, benefit, alternatives, side effects and proper use. Offered referral to UROGYN if she desires for further evaluation. At this point she wants to monitor as she doesn't want another medication and doesn't want to see another specialist. She may call for a referral if she changes her mind Assessment & Plan (09/19/2019 8:22 PM CDT): This is a significant, separately identifiable problem that was evaluated and managed on the same day as the wellness exam Discussed referral back to TRANSPORTATION ASSISTANT vs trying OAB medication. Reviewed risks, benefit, alternatives, side effects and proper use. Will try Detrol. If no improvement, may need to see specialist for urodynamics. She is up multiple times thru the night. Reviewed stopping fluids by 3pm to see if also helps. Tinnitus of both ears 10/27/2018 Assessment & Plan (12/22/2019 12:01 PM CDT): Follows with ENT at [facility] Marijuana use 10/27/2018 Assessment & Plan (12/22/2019 12:07 PM CDT): noted Periodic limb movement disorder 06/22/2018 Assessment & Plan (01/20/2022 2:40 PM CDT): Continue Mirapex per Neurology Assessment & Plan (01/01/2021 7:03 PM CDT): Continue mirapex Assessment & Plan (07/16/2020 1:54 AM CDT): Aged by neurology On Mirapex Assessment & Plan (12/22/2019 12:06 PM CDT): Continue per neurology Assessment & Plan (09/19/2019 8:18 PM CDT): Per Neurologist Incomplete tear of right rotator cuff 03/09/2018 Assessment & Plan (03/09/2018 11:30 AM SENIOR LINUX SYSTEMS ADMINISTRATOR): About 3 years ago she saw Dr. Hernandez and had an MRI which showed an incomplete he has tear in the rotator cuff, she states that the pain is back and worse. At that point she did not proceed with any further workup although surgery was recommended she states At this point we will begin with a an MRI of her shoulder and re-evaluation with Orthopedics Change in bowel habits 10/28/2017 Overview (10/28/2017): Added automatically from request for surgery [id number] Diarrhea 10/28/2017 Overview (10/28/2017): Added automatically from request for surgery [id number] Indigestion 10/03/2017 Assessment & Plan (10/03/2017 12:08 PM CDT): states she has had 3-5 BM a day, she is describing mucus containing stools I am concerned about possibility of IBS verses other inflammatory conditions versus infectious conditions will start with lab work including stool studies . I am referring her to Dr. Sylvie Lin for full evaluation and possible Colonoscopy in the interim we will give her a prescription for Bentyl and follow as her clinical Cerebral infarction due to b ilateral occlusion of carotid arteries 08/15/2017 Assessment & Plan (09/19/2019 8:22 PM CDT): On plavix and Statin. Declines adding ASA. Assessment & Plan (09/01/2017 3:50 PM CDT): Reviewed all diagnostics surgery referrals laboratory Answer all questions Call for any change Continue current medical management Lower abdominal pain 08/15/2017 Assessment & Plan (08/15/2017 11:16 AM CDT): Decrease work out no more three times a week Use heat Likely muscle strain No hernia noted Primary fibromyalgia syndrome 01/31/2017 Overview (01/31/2017): Fibromyalgia Persistent disorder of initiating or maintaining sleep 01/31/2017 Assessment & Plan (09/01/2017 3:51 PM CDT): encourage to fu pulmonary for sleep evaluation as scheduled encourage to use cpap as rx education risk benefits side affects of nonadherance Increase physical activity Avoid caffiene sugar soft drinks Do not eat 2 hours to going to bed Avoid all electronics and night lights in bedroom If no improvement fu ov or consult for sleep disorder Chronic pain syndrome 01/31/2017 Assessment & Plan (12/22/2023 11:47 AM CDT): Stable Dorsalgia 01/31/2017 Urinary urgency 06/06/2016 Rheumatoid arthritis involvi ng multiple sites with positive rheumatoid factor 02/08/2016 Assessment & Plan (01/20/2022 2:40 PM CDT): Continue per Rheumatology Assessment & Plan (07/16/2020 1:52 AM CDT): Continue per Rheum Assessment & Plan (12/22/2019 12:05 PM CDT): Continue per Rheum Has increased feet pain. May use NSAIDs prn sparingly but pt states causes increased tinnitus. Tylenol is ok to use. Has seen precision instrument maker and didn't help Assessment & Plan (09/19/2019 8:18 PM CDT): Offered referral back to surveillance monitor for re-evaluation. Pt declines at this point. Assessment & Plan (03/09/2018 11:30 AM SENIOR LINUX SYSTEMS ADMINISTRATOR): States that she was unable to tolerate any medications including Plaquenil and methotrexate because it significantly worsened her tinnitus, at this point I will refer her back to Rheumatology for evaluation Cigarette smoker 02/08/2016 Assessment & Plan (01/20/2022 2:40 PM CDT): Encouraged smoking cessation. Discussed 3 minutes. Reviewed options for assistance with cessation. Reviewed custodial sequela associated with smoking. Pt declines assistance at this time but may contact the office at anytime for further help as they desire. Assessment & Plan (01/01/2021 7:03 PM CDT): Encouraged smoking cessation. Discussed 3 minutes. Reviewed options for assistance with cessation. Reviewed custodial sequela associated with smoking. Pt declines assistance at this time but may contact the office at anytime for further help as they desire. Next LDCT is [facility] after 03/20/2021 at [facility] Assessment & Plan (07/16/2020 1:53 AM CDT): Encouraged smoking cessation. Discussed 3 minutes. Reviewed options for assistance with cessation. Reviewed custodial sequela associated with smoking. Pt declines assistance at this time but may contact the office at anytime for further help as they desire. Assessment & Plan (12/22/2019 11:54 AM CDT): Encouraged smoking cessation. Discussed 3 minutes. Reviewed options for assistance with cessation. Reviewed custodial sequela associated with smoking. Pt declines assistance at this time but may contact the office at anytime for further help as they desire. Discussed with patient Lung Cancer screening options with the patient. Encouraged LowDose CT Patient is between 55 - 77 yo. Is a current smoker or quit in the last 15 years. Has a 30+pack years smoking history. Is currently without any signs or symptoms of lung cancer. Is willing to consider curative lung surgery if needed. [id number] Assessment & Plan (09/19/2019 8:21 PM CDT): Encouraged smoking cessation. Discussed 3 minutes. Reviewed options for assistance with cessation. Reviewed custodial sequela associated with smoking. Pt declines assistance at this time but may contact the office at anytime for further help as they desire. Will discuss LDCT at next visit Assessment & Plan (05/06/2019 3:08 PM SENIOR LINUX SYSTEMS ADMINISTRATOR): A states she continues to smoke 3 cigarettes a day encouraged her to quit completely with her history of cardiovascular disease, she will be seen in 6 weeks now that she is starting 150 of Wellbutrin Chronic pain in right foot 01/31/2016 Increased frequency of urination 11/10/2015 Assessment & Plan (09/19/2019 8:12 PM CDT): OAB sxs---hasnt tried medication but willing. Reviewed risks, benefit, alternatives, side effects and proper use. Start detrol. Monitor closely Vaginal atrophy 05/18/2015 Assessment & Plan (12/22/2019 12:02 PM CDT): Continue vaginal estrogen per TRANSPORTATION ASSISTANT Assessment & Plan (09/19/2019 8:10 PM CDT): Managed by TRANSPORTATION ASSISTANT Continue vaginal estrogen Recurrent urinary tract infection 05/18/2015 Sensorineural hearing loss (SNHL) of both ears 0 01/05/2015 Biceps tendinitis 06/14/2014 Hypertension 01/27/2014 Overview (08/02/2016): Hypertension Assessment & Plan (01/20/2022 2:41 PM CDT): Bp is stable/in acceptable range for any co-morbidities. Encouraged to limit sodium intake and exercise for weight control. Continue losartan Assessment & Plan (01/01/2021 7:00 PM CDT): Bp is stable/in acceptable range for any co-morbidities. Encouraged to limit sodium intake and exercise for weight control. Continue losartan Assessment & Plan (07/16/2020 1:50 AM CDT): Bp is stable/in acceptable range for any co-morbidities. Encouraged to limit sodium intake and exercise for weight control. Continue losartan 100 Assessment & Plan (12/22/2019 12:01 PM CDT): Bp is stable/in acceptable range for any co-morbidities. Encouraged to limit sodium intake and exercise for weight control. Continue Losartan Assessment & Plan (09/19/2019 8:09 PM CDT): Bp is stable/in acceptable range for any co-morbidities. Encouraged to limit sodium intake and exercise for weight control. Continue losartan Assessment & Plan (05/06/2019 3:07 PM SENIOR LINUX SYSTEMS ADMINISTRATOR): Hypertension is unchanged. Continue current treatment regimen. Dietary sodium restriction. Weight loss. Regular aerobic exercise. Ambulatory blood pressure monitoring. Blood pressure will be reassessed at the next regular appointment. dash diet and exercise and continue current medication asa 81mg po qd fu 2-3 months for labs and bp evaluation encourage home monitoring of blood pressure call for less than 115/60 or greater than 140/85 heart rate less than 60 or greater than 90, education that some blood pressure medication increase risk of sun burn use sun screen hat and sleeves See orders. Assessment & Plan (09/01/2017 3:51 PM CDT): Hypertension is unchanged. Continue current treatment regimen. Dietary sodium restriction. Weight loss. Regular aerobic exercise. Ambulatory blood pressure monitoring. Blood pressure will be reassessed at the next regular appointment. dash diet and exercise and continue current medication asa 81mg po qd fu 2-3 months for labs and bp evaluation encourage home monitoring of blood pressure call for less than 115/60 or greater than 140/85 heart rate less than 60 or greater than 90, education that some blood pressure medication increase risk of sun burn use sun screen hat and sleeves See orders. History of CVA (cerebrovascular accident) 2013 Overview (08/02/2016): Stroke Assessment & Plan (01/01/2021 7:02 PM CDT): History of CVA. On statin, Plavix and bp controlled Assessment & Plan (07/16/2020 1:53 AM CDT): On Plavix, statin and bp controlled Assessment & Plan (12/22/2019 12:06 PM CDT): On plavix and statin Bp well controlled. Assessment & Plan (05/06/2019 3:00 PM SENIOR LINUX SYSTEMS ADMINISTRATOR): No new issues currently stable at this time Migraine 09/11/2013 Overview (07/31/2016): Migraine Hyperlipidemia 08/06/2012 Overview (08/02/2016): Other and unspecified hyperlipidemia Assessment & Plan (01/20/2022 2:40 PM CDT): Encouraged patient to follow low fat/low chol diet like the Mediterranean diet. Increase good fats in the diet. Increase exercise. Monitor labs as needed. Continue Lipitor Assessment & Plan (01/01/2021 7:00 PM CDT): Encouraged patient to follow fat/low chol diet like the Mediterranean diet. Increase good fats in the diet. Increase exercise. Monitor labs as needed. Continue lipitor Assessment & Plan (07/16/2020 1:52 AM CDT): Encouraged patient to follow fat/low chol diet like the Mediterranean diet. Increase good fats in the diet. Increase exercise. Monitor labs as needed. Continue statin Assessment & Plan (12/22/2019 12:03 PM CDT): Encouraged patient to continue low fat/low chol diet. Continue exercise. Increase good fats in the diet. Monitor labs as needed. Continue the statin Assessment & Plan (09/19/2019 8:12 PM CDT): Increase statin to moderate intensity. Recheck labs with next draw Assessment & Plan (05/06/2019 3:07 PM SENIOR LINUX SYSTEMS ADMINISTRATOR): We'll recheck fasting lipid profile in the near future Assessment & Plan (09/01/2017 3:50 PM CDT): Lipid abnormalities are unchanged. Nutritional counseling was provided. and Pharmacotherapy as ordered. Lipids will be reassessed in 3 months. Cerebral artery occlusion 08/06/2012 Overview (08/02/2016): Unspecified cerebral artery occlusion with cerebra Assessment & Plan (09/01/2017 3:50 PM CDT): Reviewed all diagnostics surgery referrals laboratory Answer all questions Continue antiplatelet call for any change Osteoarthritis 12/27/2010 Overview (08/02/2016): OA Assessment & Plan (05/06/2019 3:07 PM SENIOR LINUX SYSTEMS ADMINISTRATOR): We'd a discussion today she states that she was diagnosed with possible RA in the past she has not seen Rheumatology in quite a while I will refer her to Rheumatology for full workup, states she is using topical marijuana Resolved Problems Problem Noted Date Diagnosed Date Resolved Date BMI 27.0-27.9,adult 06/12/2021 01/04/20 22 Assessment & Plan (06/12/2021 10:13 AM SENIOR LINUX SYSTEMS ADMINISTRATOR): Weight/BMI is in healthy range. Continue healthy lifestyle to maintain. BMI 27.0-27.9,adult 04/12/2021 06/12/19 22 Assessment & Plan (04/12/2021 2:34 PM SENIOR LINUX SYSTEMS ADMINISTRATOR): Weight/BMI is in healthy range. Continue healthy lifestyle to maintain. BMI 26.0-26.9,adult 12/21/2020 04/12/20 21 Assessment & Plan (12/21/2020 11:05 AM CDT): Weight/BMI is in healthy range. Continue healthy lifestyle to maintain. BMI 25.0-25.9,adult 06/22/2020 12/22/19 21 Assessment & Plan (06/22/2020 1:56 PM SENIOR LINUX SYSTEMS ADMINISTRATOR): Weight/BMI is in healthy range. Continue healthy lifestyle to maintain. Medicare annual wellness visit, subsequent 12/21/2019 06/21/2020 Assessment & Plan (12/22/2019 12:08 PM CDT): Encouraged healthy lifestyle, good nutrition and exercise. Encouraged Calcium and Vitamin D and weight bearing exercise for bone health. Reviewed immunizations. Reviewed age appropirate screenings. Medicare Wellness Documentation is completed within the chart Annual physical exam 09/19/2019 020 Assessment & Plan (09/19/2019 8:21 PM CDT): Encouraged healthy lifestyle, good nutrition and exercise. Encouraged Calcium and Vitamin D and weight bearing exercise for bone health. Reviewed immunizations Reviewed age appropirate screenings. Other fatigue 09/19/2019 12/21/2019 Assessment & Plan (09/19/2019 8:19 PM CDT): Obesity is unchanged. Discussed the patient's BMI. The BMI is above average. BMI management plan is completed. BMI Follow-up includes: nutrition counseling, exercise counseling and education provided. Need for shingles vaccine 09/19/2019 Assessment & Plan (09/19/2019 8:25 PM CDT): Updated in office today BMI 25.0-25.9,adult 09/13/2019 06/22/19 21 Assessment & Plan (12/22/2019 12:07 PM CDT): Weight/BMI is in healthy range. Continue healthy lifestyle to maintain. Assessment & Plan (09/19/2019 8:21 PM CDT): Weight/BMI is in healthy range. Continue healthy lifestyle to maintain. Tinnitus 11/27/2018 09/13/2019 Overview (11/27/2018): Tinnitus; Comments: MPB 08/07/2015 -SEVERE BMI 27.0-27.9,adult 10/27/2018 09/13/19 20 Overview (10/27/2018): BMI Follow-up includes: nutrition counseling, exercise counseling and education provided. Anxiety with depression 07/31/201708/26 Chronic fatigue 07/31/2017 12/22/2019 Medicare annual wellness visit, subsequent 05/15/2017 09/13/2019 Assessment & Plan (10/27/2018 2:43 PM CDT): A Medicare Annual Wellness Visit (AWV) was done today as well. The patient filled out a depression screen, functional assessment screen, health risk assessment, and other physicians list. All the elements of this exam were completed as outlined by CMS. Please note that the documentation of this is split between paper documentation and this electronic record. Assessment & Plan (05/15/2017 12:54 PM SENIOR LINUX SYSTEMS ADMINISTRATOR): A Medicare Annual Wellness Visit (AWV) was done today as well. The patient filled out a depression screen, functional assessment screen, health risk assessment, and other physicians list. All the elements of this exam were completed as outlined by CMS. Please note that the documentation of this is split between paper documentation and this electronic record. BMI 27.0-27.9,adult 03/05/2017 09/13/19 20 Overview (05/15/2017): BMI Follow-up includes: nutrition counseling, exercise counseling and education provided. Assessment & Plan (03/09/2018 10:57 AM SENIOR LINUX SYSTEMS ADMINISTRATOR): BMI Follow-up includes: nutrition counseling, exercise counseling and education provided. Assessment & Plan (08/15/2017 10:30 AM CDT): BMI Follow-up includes: nutrition counseling, exercise counseling and education provided.] Assessment & Plan (03/05/2017 9:56 AM SENIOR LINUX SYSTEMS ADMINISTRATOR): BMI Follow-up includes: nutrition counseling, exercise counseling and education provided. Strain of groin, left, subsequent encounter 03/05/2017 01/01/2021 Assessment & Plan (03/05/2017 10:21 AM SENIOR LINUX SYSTEMS ADMINISTRATOR): I believe this is a groin strain recommended anti-inflammatories in the form of Tylenol he tissue will follow-up as clinical course dictates Inflammatory arthritis 01/31/201709/12 Dysuria 11/10/2015 09/13/2019 Tinnitus of both ears 01/05/20152019 Osteoarthritis of shoulder 10/03/2014 0 09/13/2019 Depression 09/11/2013 09/13/2019 Overview (08/02/2016): DEPRESSIVE DISORDER NEC Assessment & Plan (05/06/2019 3:08 PM SENIOR LINUX SYSTEMS ADMINISTRATOR): We will begin Wellbutrin both for depression, smoking cessation and weight loss follow-up in 6 weeks Encounters Date Type Department Care Team Description 12/23/2024 11:45 AM CDT Office Visit [facility] [address] [place] [phone] Siddhartha Gonzalez MD Primary hypertension (Primary Dx); Dysphagia, unspecified type; Mixed hyperlipidemia from Last 3 Months Immunizations Immunization Administration Dates Next Due Influenza, Quad, Adjuvantate d, Intramuscular 01/17/2023,02/08/2021,01/13/2020 Influenza, Quadrivalent, Hig h Dose, Preservative Free, Intrr 01/30/2022 Influenza, Quadrivalent, Spl it, Preservative Free, Intramuscular 02/15/2016 Influenza, Trivalent, High D ose, Split, Preservative Free, Intramuscular 12/13/2024,01/26/2024,02/21/2019,02/06,02/20/2017,01/24/2015 Influenza, Trivalent, Preser vative Free, Intramuscular 01/13/2020 Influenza, Trivalent, Recomb inant, Egg Free, Preservative Free, Antibiotic Free, IM (FLUBLOK) 01/28/2015 Influenza, Unspecified 05/29/2021(Deferr ed: Patient Refused),04/12/2021(Deferred: Patient Refused),03/12/2019,02/06/2018, 017 Pfizer SARS-CoV-2 Monovalent Vaccination (5-11 Yrs) 01/29/2021 Pfizer Sars-Cov-2 Bivalent V accination (12+ YRS) 01/24/2022 Pneumococcal Conjugate PCV 13 12/28/2014 Pneumococcal Conjugate Pcv21 12/13/2024 Pneumococcal Polysaccharide PPV23 01/10/2016 RSV Vaccine, Pref, Recombina nt, Subunit, Adjuvanted, PF, IM (Arexvy) 01/26/2023 Td, adsorbed 04/28/2000 Tdap 12/13/2024 ZOSTER LIVE 11/29/2010 ZOSTER Recombinant 09/13/2019, 0,04/22/2019,04/05 Surgical History Surgery Date Site/Laterality Comments SECTION x2 THORACIC SPINE SURGERY LUMBAR LAMINECTOMY 04/28/2003 - 04/27/2004 PAROTIDECTOMY 04/28/2009 - 04/27/2010 Warthin's tumor w/rhytidectomy SECTION 1980, 1986 SPINE SURGERY 04/28/2004 - 04/27/2005 CATARACT EXTRACTION EXTRACAPSULAR W/ INTRAOCULAR LENS IMPLANTATION 01/20/2024 Left Medical History Medical History Date Comments Cerebrovascular accident (CVA) ([facility]) 06/2014 memory and organizational issues Primary fibromyalgia syndrome Tinnitus Rheumatoid arthritis ([facility]) Osteoarthritis Anxiety 1980 Depression 1967 Hypertension 2007 Family History Medical History Relation Name Comments Alzheimer's disease Father reji Depression Father reji Heart attack Father reji Heart disease Father reji Pneumonia Father reji pneumonia; Caus e of : pneumonia Hearing loss Maternal Grandfather Az Breast cancer Maternal Grandmother Arthritis Mother Mikael Hearing loss Mother Mikael Other Mother Mikael pulmonary fibro sis; Breast cancer Other 1 Family history of Cancer, breast; Other Other 2 Family history of Cancer, uterine; Heart disease Other 3 Family history of Heart disease; Hearing loss Paternal Grandfather Reji Asthma Sister Sharon Developmental delay Son Sidney Campbell Marli Learning disabilities Son Sidney Campbell Marli Vision loss Son Sidney Campbell Marli Endometrial cancer Neg Hx Ovarian cancer Neg Hx Thyroid cancer Neg Hx Relation Name Status Comments Father reji Maternal Grandfather Az Maternal Grandmother Mother Mikael Other 1 Other 2 Other 3 Paternal Grandfather Reji Sister Sharon Son Sidney Campbell Marli Social History Tobacco Use Types Packs/Day Years Used Date Smoking Tobacco: Every Day Cigarettes 0.2 52 Smokeless Tobacco: Never Tobacco Cessation:Ready to Q uit: Not Asked; Counseling Given: Not Answered Alcohol Use Standard Drinks/Week Comments Yes 0 (1 standard drink = 0.6 oz pur e alcohol) 4 per month AUDIT-C Answer Date Recorded Q1: How often do you have a drink containing alc ohol? 2-4 times a month 02/02/2024 Q2: How many drinks containi ng alcohol do you have on a typical day when you are drinking? 1 or 2 02/02/2024 Q3: How often do you have si x or more drinks on one occasion? Never 02/02/2024 PHQ-2 Answer Date Recorded PHQ-2 Total Score (If total score is 3 or more points, staff should administer the PHQ-9) 2 01/03/2022 Personal Safety Answer Date Recorded Have you ever been in or are you currently in a harmful physical or emotional relationship or is someone making you feel afraid or unsafe? 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 Not on file Not on file Obstetrics History Para Term AB IAB SAB Ectopic Multiple Livin g Live Births 3 2 2 Date Outcome GA Total Labor Labor/2nd/3rd Weight Sex Type Anes PTL Nazia A1 A5 Name Clin Term Term Last Filed Vital Signs Vital Sign Reading Time Taken Comments Blood Pressure 126/76 12/23/2024 11:43 AM CDT Pulse 84 12/23/2024 11:43 AM CDT Temperature 36.1 C (97 F) 11/04/2024 10:28 AM CDT Respiratory Rate 23 02/02/2024 2:30 PM CDT Oxygen Saturation 96% 06/24/2024 11:10 AM SENIOR LINUX SYSTEMS ADMINISTRATOR Inhaled Oxygen Concentration - - Weight 71.2 kg (157 lb) 12/23/2024 11:43 AM CDT Height 165.1 cm (5' 5) 12/23/2024 11:43 AM CDT Body Mass Index 26.13 12/23/2024 11:43 AM CDT Plan of Treatment Health Maintenance Due Date Last Done Comments Hepatitis B Screening 1968 Depression Screening 01/03/2023 01/03/2022, 12/21/2020, 06/22/2020, Additional history exists Well Visit 65+ 01/03/2023 01/03/2022, 11/27, 06/22/2020, Additional history exists Covid-19 Vaccine (2024-05 6 season) 2024 01/26/2024, 07/25/2023, 01/17/2023, Additional history exists Fall Risk Assessment 02/01/2025 02/02/2024, 01/03/2022, 12/21/2020, Additional history exists Lung Cancer Screening 03/17/2025 03/16/2024 , 03/12/2023, 03/21/2021, Additional history exists Osteoporosis Screening-Bone Density Scan 03/25/2027 03/25/2022, 03/20/2020, 03/18/2018 Zoster Vaccine Completed 09/13/2019, 08/26, 04/22/2019, Additional history exists Breast Cancer Screening-Mammogram Discontinued 02/03/2023, 03/25/2022, 03/21/2021, Additional history exists Hepatitis C Screening Completed 03/28/2023, 018 Colon Cancer Screening-CT Colonography Discontinued 02/02/2024, 12/25/2020, 03/20/2020, Additional history exists Colon Cancer Screening-Colonoscopy Discontinued 02/02/2024, 12/25/2020, 03/20/2020, Additional history exists Colon Cancer Screening-DNA Stool Discontinued 02/02/2024, 12/25/2020, 03/20/2020, Additional history exists Colon Cancer Screening-FIT Discontinued 02/01, 12/25/2020, 03/20/2020, Additional history exists Colon Cancer Screening-FOBT Discontinued 10/2023, 12/25/2020, 03/20/2020, Additional history exists Colon Cancer Screening-Sigmoidoscopy Discontinued 02/02/2024, 12/25/2020, 03/20/2020, Additional history exists Colorectal Cancer Screening Discontinued DTaP/Tdap/Td Vaccine Discontinued 12/13/2024, 04/28/19 Influenza Vaccine Completed 12/13/2024, , 01/17/2023, Additional history exists Pneumococcal vaccine 65+ Completed 025, 01/10/2016, 12/28/2014 Procedures Procedure Name Priority Date/Time Associated Diagnosis Comments HOUSE ACCOUNT TRACKING Routine 12/29/2024 12:20 PM CDT URINE CULTURE Routine 12/29/2024 12:20 PM CDT REFLEXIVE URINE CULTURE Routine 12/29/2024 12:20 PM CDT URINALYSIS AND REFLEX TO MICROSCOPIC AND CULTURE Routine 12/29/2024 12:20 PM CDT Primary hypertension Dysphagia, unspecified type Mixed hyperlipidemia CBC WITH AUTO DIFFERENTIAL Routine 12/23/2024 12:28 PM CDT Primary hypertension Dysphagia, unspecified type Mixed hyperlipidemia COMPREHENSIVE METABOLIC PANEL Routine 12/23/2024 12:28 PM CDT Primary hypertension Dysphagia, unspecified type Mixed hyperlipidemia TSH Routine 12/23/2024 12:28 PM CDT Primary hypertension Dysphagia, unspecified type Mixed hyperlipidemia CT LUNG CANCER SCREENING Schedule Routine, Read Routine (OP Routine) 03/16/2024 1:43 PM SENIOR LINUX SYSTEMS ADMINISTRATOR Nicotine dependence, cigarettes, uncomplicated COLONOSCOPY 02/02/2024 1:22 PM CDT HEPATITIS PANEL, ACUTE Routine 03/28/2023 11:17 AM SENIOR LINUX SYSTEMS ADMINISTRATOR Polyarthralgia DEXA AXIAL SKELETON BONE DENSITY 1 OR MORE SITES Schedule Routine, Read Routine (OP Routine) 03/25/2022 1:57 PM SENIOR LINUX SYSTEMS ADMINISTRATOR Menopause SCREENING MAMMOGRAM BILATERAL W CLARKE Schedule Routine, Read Routine (OP Routine) 03/25/2022 1:49 PM SENIOR LINUX SYSTEMS ADMINISTRATOR Breast cancer screening by mammogram from Last 3 Months or Most Recently Relevant to Health Maintenance Results * House account tracking (12/29/2024 12:20 PM CDT) Tracking house account [facility] Comment: We were unable to identify an account number for the order submitted. If you do not have a [facility] [employer] account number or if your account information needs to be updated please call [phone] ([phone]) for assistance. To prevent delays in testing and processing of your orders please provide the following information for this order and with every additional order submitted: [facility] account number and account name Client address Client phone and fax number NPI number of ordering physician along with the physician name. 12/24/2024 5:3 6 AM CDT Narrative [facility] - 12/29/2024 12:20 PM CDT FASTING: UNKNOWN us Siddhartha Gonzalez MD LAB BLOOD ORDERABLES Final Re sult [facility] [address] [phone] * REFLEXIVE URINE CULTURE (12/29/2024 12:20 PM CDT) [facility]rine [facility] Comment:CULTURE INDICATED - RESULTS TO FOLLOW 12/24/2024 5:3 6 AM CDT Narrative [facility] - 12/29/2024 12:20 PM CDT FASTING: UNKNOWN us Siddhartha Gonzalez MD LAB MICROBIOLOGY - GENERAL OR DERABLES Final Result Performing Organization Address City/[facility]/ZIP Co de Phone Number [facility] [address] [place] [address] * (ABNORMAL) Urinalysis reflex to microscopic and culture Urine (12/29/2024 12:20 PM CDT) Color, ur DARK YELLOW YELLOW [facility] Appearance, ur CLOUDY(A) CLEAR [facility] Specific gravity 1.032 1.001 - 1.035 [facility] pH, ur 5.5 5.0 - 8.0 [facility] Glucose, ur NEGATIVE NEGATIVE [facility] Bilirubin, ur NEGATIVE NEGATIVE [facility] Ketones, ur TRACE(A) NEGATIVE [facility] Blood, ur NEGATIVE NEGATIVE [facility] Protein, ur, quant NEGATIVE NEGATIVE [facility] Nitrites, ur NEGATIVE NEGATIVE [facility] Leukocyte esterase, ur 1+(A) NEGATIVE [facility] WBC, ur 6-10(A) < OR = 5 /HPF [facility] RBC, ur 0-2 < OR = 2 /HPF [facility] Epithelial cells, squamous, ur 0-5 < OR = 5 /HPF [facility] Bacteria, ur, quant NONE SEEN NONE SEEN /HPF [facility] Calcium oxalate crystals, ur MANY(A) NONE OR FEW /HPF [facility] Hyaline cast NONE SEEN NONE SEEN /LPF [facility] Note [facility] Comment: This urine was analyzed for the presence of WBC, RBC, bacteria, casts, and other formed elements. Only those elements seen were reported. Urine 12/24/2024 5:3 6 AM CDT Narrative [facility] - 12/29/2024 12:20 PM CDT FASTING: UNKNOWN Siddhartha Gonzalez MD LAB MICROBIOLOGY - GENERAL OR DERABLES Final Result Performing Organization Address [facility] de Phone Number [facility] [address] [place] [address] * Urine culture (12/29/2024 12:20 PM CDT) Urine culture [facility] Comment: CULTURE, URINE, ROUTINE Micro Number: [id number] Test Status: Final Specimen Source: Urine Specimen Quality: Adequate Result: No Growth Comment: No collection date was provided. The specimen is generally defined as stable up to 48 hours. The result(s) need(s) to be interpreted cautiously. Clinicopathologic correlation is required. Repeat testing is recommended as clinically indicated. NO COLLECTION DATE RECEIVED. WE HAVE USED THE DATE THE SPECIMEN WAS RECEIVED BY THIS LABORATORY THE COLLECTION DATE. IF THIS IS INCORRECT, PLEASE CONTACT CLIENT SERVICES. PHONE NUMBER: [phone] 12/24/2024 5:3 6 AM CDT Narrative [facility] - 12/29/2024 12:20 PM CDT FASTING: UNKNOWN Siddhartha Gonzalez MD LAB MICROBIOLOGY - GENERAL OR DERABLES Final Result Performing Organization Address [facility] de Phone Number [facility] [address] [place] [address] * (ABNORMAL) CBC with auto differential (12/23/2024 12:28 PM CDT) WBC 7.6 3.8 - 10.8 Thousand/u L [facility] RBC, POC 4.30 3.80 - 5.10 Million/uL [facility] Hgb 13.6 11.7 - 15.5 g/dL [facility] Hct 42.9 35.0 - 45.0 % [facility] MCV 99.8 80.0 - 100.0 fL [facility] MCH 31.6 27.0 - 33.0 pg [facility] MCHC 31.7(L) 32.0 - 36.0 g/dL [facility] Comment: For adults, a slight decrease in the calculated MCHC value (in the range of 30 to 32 g/dL) is most likely not clinically significant; however, it should be interpreted with caution in correlation with other red cell parameters and the patient's clinical condition. Rdw 11.8 11.0 - 15.0 % [facility] [place] Platelets 291 140 - 400 Thousand/u L [facility] MPV 9.7 7.5 - 12.5 fL [facility] Neutrophils, abs 4,765 1,500 - 7,800 cells/uL [facility] Lymphocytes, abs 1,991 850 - 3,900 cells/uL [facility] Monocyte abs 555 200 - 950 cells/uL [facility] Eosinophils, abs 228 15 - 500 cells/uL [facility] Basophils, abs 61 0 - 200 cells/uL [facility] Neutrophils 62.7 % [facility] Lymphocyte pct 26.2 % [facility] Monocytes 7.3 % [facility] Eosinophils 3.0 % [facility] Basophils 0.8 % [facility] Blood 12/23/2024 12:2 8 PM CDT 12/24/2024 12:45 AM CDT us Siddhartha Gonzalez MD LAB BLOOD ORDERABLES Final Re sult [facility] [address] [place] [address] * TSH (12/23/2024 12:28 PM CDT) TSH 0.42 0.40 - 4.50 mIU/L [facility] Blood 12/23/2024 12:2 8 PM CDT 12/24/2024 12:45 AM CDT us Siddhartha Gonzalez MD LAB BLOOD ORDERABLES Final Re sult [facility] [address] [place] [address] * (ABNORMAL) Comprehensive metabolic panel (12/23/2024 12:28 PM CDT) Glucose 139(H) 65 - 99 mg/dL [facility] AM [facility] Comment: Fasting reference interval For someone without known diabetes, a glucose value >125 mg/dL indicates that they may have diabetes and this should be confirmed with a follow-up test. BUN 20 7 - 25 mg/dL [facility] Creatinine 0.77 0.60 - 1.00 mg/dL [facility] eGFR 80 > OR = 60 mL/min/1.7 3m2 [facility] BUN/creat ratio SEE NOTE: 6 - 22 (calc) [facility]- [facility] Comment: Not Reported: BUN and Creatinine are within reference range. Sodium 143 135 - 146 mmol/L [facility] [place] Potassium, pl 5.0 3.5 - 5.3 mmol/L [facility] Chloride 105 98 - 110 mmol/L [facility] CO2 31 20 - 32 mmol/L [facility] Calcium 10.2 8.6 - 10.4 mg/dL [facility] Protein, sr 6.8 6.1 - 8.1 g/dL [facility] Albumin 4.3 3.6 - 5.1 g/dL [facility] GLOBULIN 2.5 1.9 - 3.7 g/dL (calc) [facility] Alb/glob ratio 1.7 1.0 - 2.5 (calc) [facility] Bilirubin, total 0.4 0.2 - 1.2 mg/dL [facility] Alk phos 83 37 - 153 U/L [facility] AST 16 10 - 35 U/L [facility] ALT (SGPT) 15 6 - 29 U/L [facility] Blood 12/23/2024 12:2 8 PM CDT 12/24/2024 12:45 AM CDT Siddhartha Gonzalez MD LAB BLOOD ORDERABLES Final Re sult [facility] [address] [place] [address] * CT Lung Cancer Screening (03/16/2024 1:43 PM SENIOR LINUX SYSTEMS ADMINISTRATOR) Anatomical Region Laterality Modality Chest N/A Computed Tomogra phy 03/16/2024 2:29 PM SENIOR LINUX SYSTEMS ADMINISTRATOR Impressions 03/16/2024 2:29 PM SENIOR LINUX SYSTEMS ADMINISTRATOR 1. LungRADS Category 2 (benign) . Recommend Low dose Screening CT of chest in 12 months. 2. Stable chicho-fissural nodules in the lower lobes. 3. Mild emphysematous changes in the lungs. 4. Coronary artery disease and aortic atherosclerosis. 5. Nonobstructing calculus in the left kidney. 6. Chronic compression fracture of L1. 7. No change from previous. LungRADS Categories: 1 - Negative (no nodules, or only benign calcified or fat-containing nodules) 2 - Benign Appearance or Behavior (nodules with very low likelihood of becoming a clinically active cancer due to size or lack of growth) 3 - Probably Benign (probably benign findings-short term follow up suggested; includes nodules with a low likelihood of becoming a clinically active cancer) 4A,4B,4X - Suspicious (category 3 or 4 nodules with findings for which additional diagnostic testing and/or tissue sampling is recommended) S - Other (clinically significant or potentially clinically significant findings (non-lung cancer) C - Prior Lung Cancer (modifier for patients with a prior diagnosis of lung cancer who return to screening) Electronically signed by: Ford He M.D. Narrative 03/16/2024 2:29 PM SENIOR LINUX SYSTEMS ADMINISTRATOR EXAMINATION: Lung cancer screening CT of the Chest without intravenous contrast HISTORY: Lung Cancer Screening TECHNIQUE: Low radiation dose chest protocol. No intravenous contrast. Reconstructed slice width 1.[address] Dose Index 2.36 mGy. Dose-length product 82.9 mGy-cm. COMPARISON: 03/12/2023 FINDINGS: Lung nodules or findings of lung cancer: Small chicho-fissural nodules in the right lower lobe (image 164) and left lower lobe (image 167) are stable. Smoking related lung disease: emphysema Other findings: There is coronary artery calcification. There are atherosclerotic changes in the thoracic aorta. There is a nonobstructing calculus in the mid left kidney which is unchanged. There is a chronic compression fracture involving the superior endplate of L1. Procedure Note Ford He MD - 03/16/2024 EXAMINATION: Lung cancer screening CT of the Chest without intravenous contrast HISTORY: Lung Cancer Screening TECHNIQUE: Low radiation dose chest protocol. No intravenous contrast. Reconstructed slice width 1.[address] Dose Index 2.36 mGy. Dose-length product 82.9 mGy-cm. COMPARISON: 03/12/2023 FINDINGS: Lung nodules or findings of lung cancer: Small chicho-fissural nodules in the right lower lobe (image 164) and left lower lobe (image 167) are stable. Smoking related lung disease: emphysema Other findings: There is coronary artery calcification. There are atherosclerotic changes in the thoracic aorta. There is a nonobstructing calculus in the mid left kidney which is unchanged. There is a chronic compression fracture involving the superior endplate of L1. IMPRESSION: 1. LungRADS Category 2 (benign) . Recommend Low dose Screening CT of chest in 12 months. 2. Stable chicho-fissural nodules in the lower lobes. 3. Mild emphysematous changes in the lungs. 4. Coronary artery disease and aortic atherosclerosis. 5. Nonobstructing calculus in the left kidney. 6. Chronic compression fracture of L1. 7. No change from previous. LungRADS Categories: 1 - Negative (no nodules, or only benign calcified or fat-containing nodules) 2 - Benign Appearance or Behavior (nodules with very low likelihood of becoming a clinically active cancer due to size or lack of growth) 3 - Probably Benign (probably benign findings-short term follow up suggested; includes nodules with a low likelihood of becoming a clinically active cancer) 4A,4B,4X - Suspicious (category 3 or 4 nodules with findings for which additional diagnostic testing and/or tissue sampling is recommended) S - Other (clinically significant or potentially clinically significant findings (non-lung cancer) C - Prior Lung Cancer (modifier for patients with a prior diagnosis of lung cancer who return to screening) Electronically signed by: Ford He M.D. us Carlos Garay MD IMG CT PROCEDURES Final Result * Colonoscopy (02/02/2024 1:22 PM CDT) Anatomical Region Laterality Modality Other Narrative Procedure Note Alysia Lin MD - 02/02/2024 1:22 PM CDT ENDOSCOPY LAB Patient Name: Savanna Calles Procedure Date: 02/02/2024 1:22 PM Date of : 1950 Admit Type: Outpatient Age: 73 Gender: Female Attending MD: Alysia Lin M.D. Room: [facility] ENDOSCOPY ROOM 01 Note Status: Finalized Procedure: Colonoscopy Indications: High risk colon cancer surveillance: Personalhistory of colonic polyps, Last colonoscopy: November 2020 Providers: Alysia Lin M.D. Referring MD: Siddhartha Gonzalez M.D. Medicines: Monitored Anesthesia Care Complications: No immediate complications. Estimated blood loss: Minimal. Estimated Blood Loss: Estimated blood loss was minimal. Procedure: Pre-Anesthesia Assessment: - Immediately prior to administration ofmedications, the patient was re-assessed for adequacy to receive sedatives. The benefits, risks and alternatives of theprocedure and sedation were discussed and informed consentwas obtained. All questions were answered. Please referto the signed informed consent document in the medical record. The scope was passed under direct vision.The [id number] was introduced through the anusand advanced to the terminal ileum. The colonoscopy was performed without difficulty. The patient tolerated the procedure well. The quality of the bowel preparation was evaluated using the BBPS (BostonBowel Preparation Scale) with scores of: Right Colon = 3, Transverse Colon = 3 and Left Colon = 3 (entiremucosa seen well with no residual staining, smallfragments of stool or opaque liquid). The total BBPS score equals 9. AI Technology was utilized during the procedure to aid in polyp detection. Findings: The digital rectal exam was normal. Two sessile polyps were found in the sigmoid colon. The polyps were 2to 5 mm in size. These polyps were removed with a cold snare. Resectionand retrieval were complete. Multiple diverticula were found in the sigmoid colon, descendingcolon, transverse colon and ascending colon. Internal hemorrhoids were found during retroflexion. The hemorrhoids were small. Impression: - Two 2 to 5 mm polyps in the sigmoid colon,removed with a cold snare. Resected and retrieved. - Diverticulosis in the sigmoid colon, in the descending colon, in the transverse colon and inthe ascending colon. - Internal hemorrhoids. Recommendation: - Follow-up biopsy results. Please call the officeif you do not receive results in 2 weeks. - Repeat colonoscopy can be considered in 5 years - Patient has a contact number available for emergencies. The signs and symptoms of potential delayed complications were discussed with thepatient. Return to normal activities tomorrow. Written discharge instructions were provided to thepatient. - Contact Information: During normal business hours - Please call theNurse Coordinator: [phone] After hours, evening, nights, weekends and holidays- Please call the hospital spike machine operator at and ask for the GI fellow aerial planting and cultivation manager. Electronically by Dr Alysia Lin Alysia Lin M.D. 02/02/2024 1:58:16 PM Number of Addenda: 0 Note Initiated On: 02/02/2024 1:22 PM Alysia Lin MD ENDOSCOPY PROCEDURES Final Result * Hepatitis panel, acute Blood (03/28/2023 11:17 AM SENIOR LINUX SYSTEMS ADMINISTRATOR) Hep A IgM Nonreactive Nonreactive [facility] Hep B core IgM Nonreactive Nonreactive [facility] Hep C Ab Nonreactive Nonreactive [facility] Comment:Antibodies to HCV no t detected. Does NOT exclude the possibility of recent exposure to HCV. Current interpretive data was last revised on 21 HepBsAg Nonreactive Nonreactive [facility] Blood 03/28/2023 11:1 7 AM SENIOR LINUX SYSTEMS ADMINISTRATOR 03/28/2023 1:25 PM SENIOR LINUX SYSTEMS ADMINISTRATOR Little Carballo NP LAB MICROBIOLOGY - GE NERAL ORDERABLES Final Result [facility] Department [place] [address] * Dexa Axial Skeleton Bone Density 1 or 2 Site (03/25/2022 1:57 PM SENIOR LINUX SYSTEMS ADMINISTRATOR) Anatomical Region Laterality Modality Body N/A Other 03/25/2022 2:05 PM SENIOR LINUX SYSTEMS ADMINISTRATOR Impressions 03/25/2022 2:05 PM SENIOR LINUX SYSTEMS ADMINISTRATOR Normal bone mineral density of lumbar spine at L1-L4, total left hip and left femoral neck. Electronically signed by: Maulik Green II, D.O. Narrative 03/25/2022 2:05 PM SENIOR LINUX SYSTEMS ADMINISTRATOR Examination: Bone densitometry of the lumbar spine and the left hip History: Osteoporosis screening. Comparison: 03/20/2020. Findings: The bone densitometry of the L2-L4 region, the left femoral neck and the total left hip was calculated using dual-energy x-ray absorptiometry. Menopausal status: Post menopausal Summary: Bone mineral density (BMD) of the lumbar spine (L2-L4): T-score 1.4; previously 0.5 Bone mineral density (BMD) of the left femoral neck: T-score 0.4; previously 0.8 Bone mineral density (BMD) of the total left hip: T-score 0.2; previously 0.1 Procedure Note Maulik Green II, DO - 03/25/2022 Examination: Bone densitometry of the lumbar spine and the left hip History: Osteoporosis screening. Comparison: 03/20/2020. Findings: The bone densitometry of the L2-L4 region, the left femoral neck and the total left hip was calculated using dual-energy x-ray absorptiometry. Menopausal status: Post menopausal Summary: Bone mineral density (BMD) of the lumbar spine (L2-L4): T-score 1.4; previously 0.5 Bone mineral density (BMD) of the left femoral neck: T-score 0.4; previously 0.8 Bone mineral density (BMD) of the total left hip: T-score 0.2; previously 0.1 IMPRESSION: Normal bone mineral density of lumbar spine at L1-L4, total left hip and left femoral neck. Electronically signed by: Maulik Green II, D.O. [facility] DXA PROCEDURES Final R esult * Screening Mammogram Bilateral W Clarke (03/25/2022 1:49 PM SENIOR LINUX SYSTEMS ADMINISTRATOR) Anatomical Region Laterality Modality Breast Bilateral Mammography 03/26/2022 7:53 AM SENIOR LINUX SYSTEMS ADMINISTRATOR Impressions 03/26/2022 7:53 AM SENIOR LINUX SYSTEMS ADMINISTRATOR No evidence of malignancy in either breast. FINAL ASSESSMENT: BI-RADS Category 1: Negative. RECOMMENDATION: Recommend return for annual screening mammogram in 12 months. Electronically signed by: Odalis Trotter M.D. Narrative 03/26/2022 7:53 AM SENIOR LINUX SYSTEMS ADMINISTRATOR EXAMINATION: BILATERAL SCREENING MAMMOGRAM COMPARISON: Multiple prior studies, most recently 03/21/2021 and dating back to 02/18/2014 . Outside exam TECHNIQUE: Full-field 2D and digital breast tomosynthesis (DBT) images were obtained. CAD was utilized. BREAST PARENCHYMAL COMPOSITION: The breasts are extremely dense, which lowers the sensitivity of mammography. FINDINGS: There is no suspicious mass, calcification, or distortion in either breast. There has been no significant interval change from the prior study. [facility] MAMMO PROCEDURES Final Result from Last 3 Months or Most Recently Relevant to Health Maintenance Insurance [facility] ADVANTAGE [facility] MEDICARE [facility] MEDICARE ADVANTAGE [facility] MEDICARE [facility] MEDIC[facility] Advance Directives For more information, please contact: [phone] * Full Code (Latest Code Status on File) Date Activated Date Inactivated Comments 02/02/2024 1:18 PM 02/02/2024 7:08 PM * Full Code Date Activated Date Inactivated Comments 12/25/2020 12:21 PM 12/25/2020 6:59 PM * Full Code Date Activated Date Inactivated Comments 11/12/2017 10:45 AM 11/12/2017 2:58 PM Care Teams 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
--- OUTSIDE RECORDS SUMMARY | 2025-03-08 14:35 | XMS_ITS | Patient Health Record ---
Author Organization [facility] Address [address] [facility] [address] [place] [address] Care Team Providers Care Talent Acquisition Relationship Manager Name Role Phone Zheng Paulino Unavailable [phone] Reason For Referral No Information Plan Of Treatment No Information
--- OUTSIDE RECORDS SUMMARY | 2025-03-08 14:35 | XMS_ITS | Clinical Summary ---
Author Organization [facility] Address [address] [place] [id number] Care Team Providers Care Ict Project Manager Name Role Phone Unavailable Primary Care Provider Unavailabl e Social History Tobacco Use Types Packs/Day Years Used Date Smoking Tobacco: Never Assessed Comments Unknown Sex and Gender Information Value Date Recorded Sex Assigned at Not on file Legal Sex Female 7:39 PM CDT Gender Identity Not on file Sexual Orientation Not on file Plan of Treatment Health Maintenance Due Date Last Done Comments Hepatitis C 1968 DTaP, Tdap and Td Vaccines ( 1 - Tdap) 11/16/1967 Pneumococcal Vaccine: 50+ Ye ars (1 of 1 - PCV) 1998 Zoster Vaccines (1 of 2) 1998 Dexa Scan (General) 2013 RSV Immunization or 60+ Years (1 - 1-dose 75+ series) 11/16/2023 COVID-19 Vaccine ( - 2024-2 6 season) 2024 Influenza Adult (#1) 2025 Hepatitis A Vaccines Aged Out No long er eligible based on patient's age to complete this topic Meningococcal B Vaccine Aged Out No l onger eligible based on patient's age to complete this topic Meningococcal Vaccine Aged Out No cruz anai eligible based on patient's age to complete this topic RSV Immunizations Under 20 Months Aged Out No longer eligible based on patient's age to complete this topic
== END 2025-03-08 14:29 | disposition home or self-care (01) ==
PROVIDERS: PCP Internal Medicine; Visit Provider Obstetrics & Gynecology Gynecology
DX: Z12.31 Encounter for screening mammogram for malignant neoplasm of breast (principal)
CPT/HCPCS: 77063; 77067

== ENCOUNTER 2025-04-04 09:56 | Outpatient (CLI) | payer MEDICARE, SELFPAY ==
--- NOTE | ~2025-04-04 | CT_ITS ---
EXAMINATION:CT lung screening DATE: 04/04/2025 10:15 INDICATION: Personal history of nicotine dependence. TECHNIQUE: Computed tomography (CT) of the chest was performed without intravenous contrast. Automated exposure control and iterative reconstruction technique were employed. The dose-length product (DLP) was 68.78 mGy-cm. COMPARISON: CT abdomen and pelvis 11/06/2021 FINDINGS: There is mild emphysema. There is a 5 mm nodular right major fissure. There is a 5 mm nodule at left major fissure. There is a 2 mm nodule in left upper lobe. There is mild diffuse peripheral septal thickening in the lungs, likely chronic. No pleural effusion. The heart size is normal. There are coronary artery calcifications. No pericardial effusion. There is severe thoracic spondylosis. There is a chronic compression fracture of L1. IMPRESSION: 1. Lung-RADS category 2: Benign appearance or behavior. Continue annual screening with noncontrast low-dose chest CT in 12 months. Reviewed, dictated and finalized at location E. T CONSULTANT IMPRESSION: 1. Lung-RADS category 2: Benign appearance or behavior. Continue annual screeni ng with noncontrast low-dose chest CT in 12 months.
== END 2025-04-04 09:57 | disposition home or self-care (01) ==
LOC: MICIMG 09:57
PROVIDERS: PCP Internal Medicine; Visit Provider Internal Medicine Pulmonary Disease
DX: Z12.2 Encounter for screening for malignant neoplasm of respiratory organs (principal); F17.210 Nicotine dependence, cigarettes, uncomplicated
CPT/HCPCS: 71271